=== PATIENT | female | born 1955 | race African-American/Black ===

== ENCOUNTER → 2017-01-06 | Day surgery (SDC) | payer OTHER ==
--- NOTE | 2017-01-07 16:30 | PATH ---
Surgical Pathology Report Patient Name: KARLIE VIDAL [facility]. Rec. #: [id number] /Age/Gender: 1955 (Age: 61) / F Account: [id number] Location: RADIOLOGY [facility] Taken: 01/06/2017 Received: 01/06/2017 Reported: 01/07/2017 Physicians: Grant Solano M.D. Specimen(s) Received RIGHT BREAST MASS SUSPICIOUS 8:30 - 9:00 Clinical History Nonpalpable lesion, right breast mass Ultrasound findings: Highly suspicious/malignant Final Diagnosis BREAST, RIGHT, MASS, 8:30- 9:00, ULTRASOUND GUIDED CORE BIOPSY: INVASIVE DUCTAL CARCINOMA, MODERATELY DIFFERENTIATED, MEASURING 1.2 CM IN THIS MATERIAL. COMMENT: Immunohistochemical stain performed and interpreted at [facility] show the carcinoma is positive for E-cadherin, supporting ductal differentiation. Findings discussed with Dr. Chang. Breast prognostic markers are pending and will be reported as an addendum. Electronically Signed Karo Ferro M.D. Addendum Reported: 01/09/2017 Addendum Diagnosis Results of Estrogen Receptor (ER) and Progesterone Receptor (WV) studies performed on block "1 " at [facility] are as follows: ER (clone [id number] mouse monoclonal antibody by [employer]): 90% nuclear staining with moderate to strong intensity (Positive). WV (clone16 mouse monoclonal antibody by [employer]): up to ~5% nuclear staining with moderate intensity (Positive). Results of Her2 (IHC) & Ki-67 studies performed on block "1 " at [place], [place] ([id number]) are as follows: Her2 IHC (EP3 from [employer], formerly known as [id number], using Amador Polymer Refine detection kit): 3+ (Positive) Ki-67: 40% (high proliferative index). Positive and negative controls (internal if applicable) show appropriate results. Formalin fixation and cold ischemic times are within current ASCO/CAP recommendations for ER, WV and Her2 testing. Karo Ferro M.D. Gross Description Received in formalin, labeled "right 8:30-9:00," are 4 sal-yellow, cylindrical portions of fibroadipose tissue ranging from 1.0-1.4 cm. in length and averaging 0.1 cm. in diameter. The specimen is submitted in toto in one cassette. Time to formalin fixation: Less than one minute Total formalin fixation time: Approximately 7 hours. 01/06/201701/06/2017
== END | disposition home or self-care (01) ==
LOC: JRADUS-SUR 10:14
PROVIDERS: ATTEND Internal Medicine
PROC: 0HBT3ZX Excision of Right Breast, Percutaneous Approach, Diagnostic (ICD-10-PCS; principal; 2017-01-06)
DX: C50.511 Malignant neoplasm of lower-outer quadrant of right female breast (principal); N63.13 Unspecified lump in the right breast, lower outer quadrant
CPT/HCPCS: 19083; 88305-TC; 88341-TC; 88342-TC; G0206-TC

== ENCOUNTER → 2017-01-20 | Day surgery (SDC) | payer OTHER ==
--- NOTE | 2017-01-21 15:50 | PATH ---
Surgical Pathology Report Patient Name: KARLIE VIDAL [facility]. Rec. #: [id number] /Age/Gender: 1955 (Age: 61) / F Account: [id number] Location: RADIOLOGY [facility] Taken: 01/20/2017 Received: 01/20/2017 Reported: 01/21/2017 Physicians: Grant Solano M.D. Specimen(s) Received A: RIGHT LYMPH NODE BREAST CORE BIOPSY B: RIGHT LYMPH NODE BREAST CORE BIOPSY Clinical History Preoperative diagnosis: Nonpalpable lesion, patient has biopsy proven right breast malignancy Mammographic findings: Suspicious Ultrasound findings: Suspicious Final Diagnosis A. RIGHT AXILLARY LYMPH NODE #1, NEEDLE CORE BIOPSY: METASTATIC ADENOCARCINOMA MORPHOLOGICALLY CONSISTENT WITH THE PATIENT'S PREVIOUSLY DIAGNOSED BREAST CARCINOMA, 0.8 CM IN LENGTH MEASURED ON SLIDE. B. RIGHT AXILLARY LYMPH NODE #2, NEEDLE CORE BIOPSY: METASTATIC ADENOCARCINOMA MORPHOLOGICALLY CONSISTENT WITH THE PATIENT'S PREVIOUSLY DIAGNOSED BREAST CARCINOMA, 0.3 CM IN LENGTH MEASURED ON SLIDE. Results of Estrogen Receptor (ER) and Progesterone Receptor (HI) studies performed on block "A" at [facility] are as follows: ER (clone [id number] mouse monoclonal antibody by [employer]): ~80% nuclear staining with moderate intensity (Positive). HI (clone16 mouse monoclonal antibody by [employer]): ~5% nuclear staining with moderate intensity (Positive). Positive and negative controls (internal if applicable) show appropriate results. Formalin fixation and cold ischemic times are within current ASCO/CAP recommendations for ER, HI and Her2 testing. Comment: Also see prior specimen [id number]. Assays for HER-2/maris and Ki67 are pending, and a report will follow. Electronically Signed Bernardo Carter M.D. Addendum Reported: 01/23/2017 Addendum Diagnosis Results of Her2 (IHC) & Ki-67 studies performed on block "A" at [place], [place] ([id number]) are as follows: Her2 IHC (EP3 from [employer], formerly known as [id number], using [employer] Polymer Refine detection kit): 3+ Positive Ki-67: ~25% (Intermediate proliferative index) Positive and negative controls (internal if applicable) show appropriate results. Bernardo Carter M.D. Gross Description A. Received in formalin labeled "right axilla lymph node #1," are 3 sal-yellow, cylindrical portions of fibroadipose tissue ranging from 0.4-1.2 cm in length and averaging 0.1 cm in diameter. The specimens are submitted in toto in one cassette. B. Received in formalin labeled "right axilla lymph node #2," is a 1.2 cm in length and 0.1 cm in diameter sal-yellow, cylindrical portion of fibroadipose tissue. The specimen is submitted in toto in one cassette. Time to formalin fixation: Less than one minute Total formalin fixation time: Approximately 8 hours. 01/20/201701/20/2017
== END | disposition home or self-care (01) ==
LOC: JRADUS-SUR 08:13
PROVIDERS: ATTEND Surgery Surgical Oncology
PROC: 07D53ZX Extraction of Right Axillary Lymphatic, Percutaneous Approach, Diagnostic (ICD-10-PCS; principal; 2017-01-20)
DX: C50.911 Malignant neoplasm of unspecified site of right female breast (principal); C77.3 Secondary and unspecified malignant neoplasm of axilla and upper limb lymph nodes; Z17.0 Estrogen receptor positive status [ER+]
CPT/HCPCS: 19083; 38505; 76942; 87899; 88305-TC; 88342-TC

== ENCOUNTER 2017-02-25 07:12 | Day surgery (SDC) | payer OTHER ==
[2017-02-18 10:14] VITALS: BMI 52.5
--- NOTE | 2017-02-19 10:34 | HP ---
Admitting History and Physical - Primary Care Physician PCP: Mendoza Oquendo - Admission Chief Complaint: right breast cancer History of Present Illness: 61 yo female noted to have a right upper outer quad mass on mammo and US (1.2 cm at 8:30-9:00), underwent an US core bx which was c/w infiltrating ductal carcinoma, ER pos, TN pos, Her 2 pos. On exam, patient was also noted to have a suspicious right axillary LN. Core bx was done 01/20 which was c/w metastatic adeno carcinoma. Patient is now scheduled to have an infusaport placement for neoadjuvant chemo. History Source: Patient Limitations to Obtaining History: No Limitations - Past Medical History Cardiovascular: Yes: HTN Pulmonary: Yes: Asthma Gastrointestinal: Yes: GERD ...: No - Smoking History Smoking history: Never smoked Have you smoked in the past 12 months: No - Alcohol/Substance Use Hx Alcohol Use: Yes (OCCASIONALLY) Home Medications - Allergies Allergies/Adverse Reactions: Allergies Allergy/AdvReac Type Severity Reaction Status Date / Time No Known Allergies Allergy Verified 02/18/17 10:14 - Home Medications Home Medications: Ambulatory Orders Albuterol Sulfate Inhaler - [Ventolin HFA Inhaler -] 1 puff IH PRN PRN 02/18/17 Amlodipine Besylate 5 mg PO DAILY 02/18/17 Atenolol/Chlorthalidone [Atenolol-Chlorthalidone 100-25] 1 tab PO DAILY Omeprazole 20 mg PO BID 02/18/17 Salmeterol/Fluticasone [Advair 500Mcg/50Mcg -] 1 inh IN BID 02/18/17 Family Disease History - Family Disease History Family History: Unremarkable Review of Systems - Review of Systems Constitutional: reports: No Symptoms Cardiovascular: reports: No Symptoms Respiratory: reports: No Symptoms Physical Examination Constitutional: Yes: Well Nourished, Calm Cardiovascular: Yes: WNL Respiratory: Yes: WNL Breast(s): Yes: Other (No suspicious masses, nipple d/c or retraction noted. Palpable right axillary firm node noted.) Problem List - Problems (1) Breast cancer, right Code(s): C50.911 - MALIGNANT NEOPLASM OF UNSP SITE OF RIGHT FEMALE BREAST Qualifiers: Breast location: overlapping sites of breast Estrogen receptor status: positive Patient sex: female Qualified Code(s): C50.811 - Malignant neoplasm of overlapping sites of right female breast; Z17.0 - Estrogen receptor positive status [ER+]; Z17.0 - Estrogen receptor positive status [ER+] Assessment/Plan Right breast cancer with mets to axillary nodes.
[2017-02-25] MEDS ORDERED: DESFLURANE GAS 240 ML BOTTLE IH ONE (07:26)
[2017-02-25] MEDS ORDERED: DEXAMETHASONE SOD PHOSPHATE 4 MG/1 ML VIAL ONE (07:37)
[2017-02-25] MEDS ORDERED: ceFAZolin SODIUM 1 GM VIAL ONE ×2 (07:37→08:26)
[2017-02-25] MEDS ORDERED: KETOROLAC TROMETHAMINE 30 MG/1 ML VIAL ONE (07:37)
[2017-02-25] MEDS ORDERED: ONDANSETRON 4 MG/2 ML VIAL ONE (07:37)
[2017-02-25] MEDS ORDERED: MIDAZOLAM HCL 2 MG/2 ML SINGLE DOSE VIAL ONE (07:38)
[2017-02-25] MEDS ORDERED: SUCCINYLCHOLINE CHLORIDE 200 MG/10 ML VIAL ONE (07:38)
[2017-02-25] MEDS ORDERED: PROPOFOL 20 ML ONE ×2 (07:38)
[2017-02-25] MEDS ORDERED: HEPARIN NA (PORCINE) 5,000 UNITS/ML 1ML VIAL SQ ONE (09:10)
[2017-02-25] MEDS ORDERED: KETOROLAC TROMETHAMINE 30 MG/1 ML VIAL IVPUSH PRN (09:10)
[2017-02-25] MEDS ORDERED: ONDANSETRON 4 MG/2 ML VIAL IVPUSH PRN (09:10)
[2017-02-25] MEDS ORDERED: LIDOCAINE HCL 1%, 10 MG/ML (20ML VIAL) INF ONE ×2 (09:11)
[2017-02-25] MEDS ORDERED: DEXTROSE 5%-0.45% SALINE 1,000 ML IV SCH (09:15)
[2017-02-25 10:24] VITALS: TEMP 98.6
--- NOTE | 2017-02-25 12:12 | OP ---
DATE OF OPERATION: 02/25/2017 PREOPERATIVE DIAGNOSIS: Right breast cancer. POSTOPERATIVE DIAGNOSIS: Right breast cancer. PROCEDURE: Left subclavian single-lumen LifePort placement. ANESTHESIA: IV sedation with local. ATTENDING SURGEON: Mendoza Oquendo MD ESTIMATED BLOOD LOSS: Minimal. COMPLICATIONS: None. DESCRIPTION OF PROCEDURE: Patient was made aware of the risks and benefits of the procedure and consented. She was placed in the supine position, and after IV sedation was administered, the operative site was prepped and draped in the usual sterile fashion. She was then placed in the Trendelenburg position. Lidocaine 1% was used for local anesthesia. Using the Seldinger technique, the left subclavian vein was easily identified, and a wire was placed into good position by identification by intraoperative fluoroscopy. Incisions were made over the puncture site, and approximately inferomedial to the puncture site. Using electrocautery, the larger inferior incision was deepened, and an inferior pocket was made. The catheter was tunneled from the large incision to the smaller incision and fashioned to the proper length. The proximal inferior portion was then attached to the port head, which was then placed into the inferior pocket. Under direct fluoroscopic control, a dilator and introducer were placed over the wire in good position, and the wire and dilator were removed. The catheter was placed through the introducer into good position, and then, the introducer was stripped away. There was easy withdrawal of blood and infusion of dilute and then concentrated heparinized saline. The catheter length was 22 cm. The port head was then sutured to the skin with 2-0 Prolene. The wound was copiously irrigated with normal saline. Hemostasis was maintained by electrocautery. The wound was then closed with deep 3-0 Vicryl followed y a running subcuticular 4-0 Monocryl. Dermabond was then applied, and the post-procedure chest x-ray revealed no pneumothorax and good position of the catheter. Patient discharged to home. MENDOZA OQUENDO M.D. [id number]
[2017-02-25 12:49] VITALS: BP 132/84; PULSE 59
== END 2017-02-25 12:10 | disposition home or self-care (01) ==
LOC: FASU 07:12
PROVIDERS: ATTEND Surgery Surgical Oncology
PROC: B517ZZA Fluoroscopy of Left Subclavian Vein, Guidance (ICD-10-PCS; 2017-02-25)
PROC: 05H633Z Insertion of Infusion Device into Left Subclavian Vein, Percutaneous Approach (ICD-10-PCS; principal; 2017-02-25 08:58)
DX: C50.811 Malignant neoplasm of overlapping sites of right female breast (principal); Z17.0 Estrogen receptor positive status [ER+]; I10 Essential (primary) hypertension; J45.909 Unspecified asthma, uncomplicated; K21.9 Gastro-esophageal reflux disease without esophagitis
CPT/HCPCS: 71045-TC; J1644

== ENCOUNTER 2017-02-27 07:34 | Day surgery (SDC) | payer OTHER ==
[~2017-02-27 07:34] MED LIST: ACETAMINOPHEN 325 MG TABLET (FP) PO ONE; DEXAMETHASONE IVPB ONE; DIPHENHYDRAMINE IVPB ONE; PACLITAXEL IVPB ONE; PERTUZUMAB 840 MG in SODIUM CHLORIDE 250 ML IVPB ONE; RANITIDINE IVPB ONE; SODIUM CHLORIDE IVPB ONE; TRASTUZUMAB IVPB ONE; [UNRECOGNIZED DRUG - OTHER] IVPB ONE
[2017-02-27] MEDS ORDERED: DIPHENHYDRAMINE IVPB ONE ×2 (10:00→11:15)
[2017-02-27] MEDS ORDERED: DEXAMETHASONE IVPB ONE ×2 (10:00→11:15)
[2017-02-27] MEDS ORDERED: ACETAMINOPHEN 325 MG TABLET (FP) PO ONE (10:00)
[2017-02-27] MEDS ORDERED: RANITIDINE IVPB ONE ×2 (10:00→11:15)
[2017-02-27] MEDS ORDERED: [UNRECOGNIZED DRUG - OTHER] IVPB ONE (10:00)
[2017-02-27 10:34] LABS: BASO % 0.2 % (0-2.0); EOS % 0.3 % (0-4.5); HEMATOCRIT 40.7 % (32.4-45.2); HEMOGLOBIN 13.1 GM/dL (10.7-15.3); MCHC 32.1 g/dl (32.0-36.0); MEAN CELL VOLUME 90.3 fl (80-96); MEAN PLT VOLUME 9.7 fl (7.5-11.1); MONO % 5.7 % (3.8-10.2); NEUT % 77.8 % (42.8-82.8); PLATELET COUNT 202 K/MM3 (134-434); RBC 4.51 M/mm3 (3.60-5.2); RDW 14.8 % (11.6-15.6); WHITE BLOOD COUNT 9.9 K/mm3 (4.0-10.0)
[2017-02-27 10:57] LABS: ALBUMIN 3.9 g/dl (3.4-5.0); ALK PHOS 74 U/L (45-117); ANION GAP 11 (8-16); BILIRUBIN,DIRECT < 0.2 mg/dL (0.0-0.2); BILIRUBIN,TOTAL 0.4 mg/dL (0.2-1.0); BLOOD UREA NITROGEN 19 mg/dL (7-18); CALCIUM 9.2 mg/dL (8.5-10.1); CHLORIDE 104 mmol/L (98-107); CO2 27 mmol/L (21-32); CREATININE 1.1 mg/dL (0.55-1.02); GLUCOSE,RANDOM 152 mg/dL (74-106); POTASSIUM 3.5 mmol/L (3.5-5.1); SGOT/AST 14 U/L (15-37); SGPT/ALT 20 U/L (12-78); SODIUM 142 mmol/L (136-145); TOT PROT 7.4 g/dl (6.4-8.2)
[2017-02-27] MEDS ORDERED: SODIUM CHLORIDE IVPB ONE ×3 (11:00→13:00)
[2017-02-27] MEDS ORDERED: PACLITAXEL IVPB ONE (11:00)
[2017-02-27] MEDS ORDERED: DEXAMETHASONE SOD PHOSPHATE 10 MG/1 ML VIAL IVPB ONE (11:15)
[2017-02-27] MEDS ORDERED: [UNRECOGNIZED DRUG - OTHER] IVPB ONE (11:15)
[2017-02-27] MEDS ORDERED: PERTUZUMAB 840 MG in SODIUM CHLORIDE 250 ML IVPB ONE ×2 (12:00→13:30)
[2017-02-27] MEDS ORDERED: TRASTUZUMAB IVPB ONE ×2 (12:00→13:00)
[2017-02-27] MEDS ORDERED: PORTA CATH FLUSH 10 ML IVPUSH ONE (15:34)
[2017-02-27 15:35] VITALS: TEMP 97.7
[2017-02-27 16:19] VITALS: BP 148/90; PULSE 63
== END 2017-02-27 16:20 | disposition home or self-care (01) ==
LOC: JONCCHEMO 07:34 → J7W 11:20 → JONCCHEMO 16:20
PROVIDERS: ATTEND Internal Medicine Hematology & Oncology
DX: Z51.11 Encounter for antineoplastic chemotherapy (principal); C50.919 Malignant neoplasm of unspecified site of unspecified female breast; E66.01 Morbid (severe) obesity due to excess calories; G47.30 Sleep apnea, unspecified; I10 Essential (primary) hypertension; J45.909 Unspecified asthma, uncomplicated
CPT/HCPCS: 36415; 80053; 80076; 83735; 85025; 96367; 96375; 96413; 96415; 96417; J9306; J9355

== ENCOUNTER 2017-03-06 07:42 | Day surgery (SDC) | payer OTHER ==
[2017-03-06] MEDS ORDERED: DEXAMETHASONE IVPB ONE (10:00)
[2017-03-06] MEDS ORDERED: [UNRECOGNIZED DRUG - OTHER] IVPB ONE (10:00)
[2017-03-06] MEDS ORDERED: DIPHENHYDRAMINE IVPB ONE (10:00)
[2017-03-06] MEDS ORDERED: RANITIDINE IVPB ONE (10:00)
[2017-03-06] MEDS ORDERED: SODIUM CHLORIDE IVPB ONE (10:30)
[2017-03-06] MEDS ORDERED: PACLITAXEL IVPB ONE (10:30)
[2017-03-06] MEDS ORDERED: SODIUM CHLORIDE 1,000 ML IV SCH (12:30)
[2017-03-06 13:08] LABS: BASO % 0.1 % (0-2.0); EOS % 0.1 % (0-4.5); HEMATOCRIT 39.2 % (32.4-45.2); HEMOGLOBIN 12.5 GM/dL (10.7-15.3); LYMPH % 7.8 % (8-40); MCH 28.8 pg (25.7-33.7); MEAN PLT VOLUME 9.9 fl (7.5-11.1); MONO % 1.1 % (3.8-10.2); NEUT % 90.9 % (42.8-82.8); PLATELET COUNT 203 K/MM3 (134-434); RBC 4.35 M/mm3 (3.60-5.2); RDW 14.7 % (11.6-15.6)
[2017-03-06 13:33] LABS: ALBUMIN 3.1 g/dl (3.4-5.0); CALCIUM 7.6 mg/dL (8.5-10.1); CHLORIDE 106 mmol/L (98-107); SODIUM 142 mmol/L (136-145)
[2017-03-06 13:38] LABS: ALK PHOS 65 U/L (45-117); ANION GAP 12 (8-16); BILIRUBIN,TOTAL 0.5 mg/dL (0.2-1.0); BLOOD UREA NITROGEN 16 mg/dL (7-18); CO2 24 mmol/L (21-32); GLUCOSE,RANDOM 208 mg/dL (74-106); SGOT/AST 18 U/L (15-37); SGPT/ALT 26 U/L (12-78); TOT PROT 6.1 g/dl (6.4-8.2)
[2017-03-06 13:54] LABS: POTASSIUM 2.8 mmol/L (3.5-5.1)
[2017-03-06] MEDS ORDERED: POTASSIUM CHLORIDE TABS 20 MEQ TABLET.ER (FP) PO ONE (14:30)
[2017-03-06] MEDS ORDERED: SODIUM CHLORIDE 100 ML with POTASSIUM CHLORIDE 10 MEQ IVPB SCH (15:30)
[2017-03-06] MEDS ORDERED: KCL 10 MEQ IVPB 10 MEQ/100 ML INFUS.BAG IVPB SCH (15:30)
[2017-03-06 16:15] VITALS: TEMP 97.7
[2017-03-06] MEDS ORDERED: PORTA CATH FLUSH 10 ML IVPUSH ONE (16:22)
[2017-03-06] MEDS: SODIUM CHLORIDE 100 ML with POTASSIUM CHLORIDE 10 MEQ IVPB SCH ×2 (16:27→17:33)
[2017-03-06 18:31] VITALS: BP 132/73; PULSE 74
== END 2017-03-06 18:55 | disposition home or self-care (01) ==
LOC: JONCCHEMO 07:42 → J7W 12:04 → JONCCHEMO 18:55
PROVIDERS: ATTEND Internal Medicine Hematology & Oncology
DX: Z51.11 Encounter for antineoplastic chemotherapy (principal); C50.919 Malignant neoplasm of unspecified site of unspecified female breast
CPT/HCPCS: 36415; 80053; 82962; 85025; 96366; 96367; 96375; 96413; 96415; 96417; J1100

== ENCOUNTER 2017-03-13 07:28 | Day surgery (SDC) | payer OTHER ==
[2017-03-13] MEDS ORDERED: DEXAMETHASONE INJECTION 10 MG, RANITIDINE INJECTION 50 MG, DIPHENHYDRAMINE 50 MG in SOD... IVPB ONE (10:00)
[2017-03-13] MEDS ORDERED: PACLITAXEL IVPB ONE (10:30)
[2017-03-13] MEDS ORDERED: SODIUM CHLORIDE IVPB ONE (10:30)
[2017-03-13 11:16] LABS: BASO % 0.5 % (0-2.0); EOS % 0.1 % (0-4.5); HEMATOCRIT 39.1 % (32.4-45.2); HEMOGLOBIN 12.9 GM/dL (10.7-15.3); LYMPH % 12.3 % (8-40); MCH 29.6 pg (25.7-33.7); MEAN CELL VOLUME 89.8 fl (80-96); MEAN PLT VOLUME 8.8 fl (7.5-11.1); MONO % 1.9 % (3.8-10.2); NEUT % 85.2 % (42.8-82.8); PLATELET COUNT 231 K/MM3 (134-434); RBC 4.36 M/mm3 (3.60-5.2); RDW 14.1 % (11.6-15.6)
[2017-03-13 11:45] LABS: ALBUMIN 3.8 g/dl (3.4-5.0); ALK PHOS 79 U/L (45-117); ANION GAP 9 (8-16); BILIRUBIN,TOTAL 0.4 mg/dL (0.2-1.0); BLOOD UREA NITROGEN 15 mg/dL (7-18); CALCIUM 8.7 mg/dL (8.5-10.1); CHLORIDE 103 mmol/L (98-107); CO2 26 mmol/L (21-32); CREATININE 1.2 mg/dL (0.55-1.02); GLUCOSE,RANDOM 149 mg/dL (74-106); MAGNESIUM 1.8 mg/dL (1.8-2.4); POTASSIUM 3.7 mmol/L (3.5-5.1); SGOT/AST 12 U/L (15-37); SGPT/ALT 29 U/L (12-78); SODIUM 138 mmol/L (136-145); TOT PROT 7.3 g/dl (6.4-8.2)
[2017-03-13] MEDS ORDERED: DEXAMETHASONE SOD PHOSPHATE 10 MG/1 ML VIAL IVPB ONE (14:00)
[2017-03-13] MEDS ORDERED: DEXAMETHASONE INJECTION 10 MG, ONDANSETRON INJECTION 12 MG in SODIUM CHLORIDE 100 ML IVPUSH ONE (14:00)
[2017-03-13] MEDS ORDERED: SODIUM CHLORIDE 1,000 ML IV SCH (15:45)
[2017-03-13 16:54] VITALS: PULSE 67
[2017-03-13] MEDS ORDERED: PORTA CATH FLUSH 10 ML IVPUSH ONE (17:20)
[2017-03-13 18:38] VITALS: BP 125/65; TEMP 98.4
== END 2017-03-13 19:31 | disposition home or self-care (01) ==
LOC: JONCCHEMO 07:28 → J7W 13:07 → JONCCHEMO 19:31
PROVIDERS: ATTEND Internal Medicine Hematology & Oncology
DX: Z51.11 Encounter for antineoplastic chemotherapy (principal); C50.919 Malignant neoplasm of unspecified site of unspecified female breast
CPT/HCPCS: 36415; 80053; 82962; 83735; 85025; 96361; 96367; 96375; 96413

== ENCOUNTER 2017-03-20 07:33 | Day surgery (SDC) | payer OTHER ==
[2017-03-20] MEDS ORDERED: DEXAMETHASONE INJECTION 10 MG, RANITIDINE INJECTION 50 MG, DIPHENHYDRAMINE 50 MG in SOD... IVPB ONE (08:00)
[2017-03-20] MEDS ORDERED: ACETAMINOPHEN 325 MG TABLET (FP) PO ONE (08:00)
[2017-03-20] MEDS ORDERED: PACLITAXEL IVPB ONE (08:30)
[2017-03-20] MEDS ORDERED: SODIUM CHLORIDE IVPB ONE ×2 (08:30→10:30)
[2017-03-20] MEDS ORDERED: PERTUZUMAB 420 MG in SODIUM CHLORIDE 250 ML IVPB ONE (09:30)
[2017-03-20] MEDS ORDERED: TRASTUZUMAB IVPB ONE (10:30)
[2017-03-20 11:26] LABS: BASO % 0.5 % (0-2.0); EOS % 0.1 % (0-4.5); HEMATOCRIT 36.5 % (32.4-45.2); HEMOGLOBIN 12.1 GM/dL (10.7-15.3); LYMPH % 13.7 % (8-40); MCH 29.8 pg (25.7-33.7); MCHC 33.3 g/dl (32.0-36.0); MEAN CELL VOLUME 89.5 fl (80-96); MEAN PLT VOLUME 8.9 fl (7.5-11.1); MONO % 2.7 % (3.8-10.2); PLATELET COUNT 279 K/MM3 (134-434); RBC 4.08 M/mm3 (3.60-5.2); RDW 14.3 % (11.6-15.6); WHITE BLOOD COUNT 4.5 K/mm3 (4.0-10.0)
[2017-03-20 11:51] LABS: ALBUMIN 3.5 g/dl (3.4-5.0); ALK PHOS 74 U/L (45-117); ANION GAP 10 (8-16); BILIRUBIN,DIRECT < 0.2 mg/dL (0.0-0.2); BILIRUBIN,TOTAL 0.3 mg/dL (0.2-1.0); BLOOD UREA NITROGEN 14 mg/dL (7-18); CALCIUM 8.5 mg/dL (8.5-10.1); CHLORIDE 104 mmol/L (98-107); CO2 25 mmol/L (21-32); CREATININE 1.2 mg/dL (0.55-1.02); GLUCOSE,RANDOM 168 mg/dL (74-106); MAGNESIUM 1.7 mg/dL (1.8-2.4); POTASSIUM 3.5 mmol/L (3.5-5.1); SGOT/AST 13 U/L (15-37); SGPT/ALT 27 U/L (12-78); SODIUM 139 mmol/L (136-145); TOT PROT 6.8 g/dl (6.4-8.2)
[2017-03-20] MEDS ORDERED: DEXAMETHASONE SOD PHOSPHATE 10 MG/1 ML VIAL IVPUSH ONE (12:30)
[2017-03-20 12:35] VITALS: TEMP 97.7
[2017-03-20] MEDS ORDERED: PORTA CATH FLUSH 10 ML IVPUSH ONE ×2 (14:34→14:48)
[2017-03-20 16:05] VITALS: BP 130/80; PULSE 72
== END 2017-03-20 15:20 | disposition home or self-care (01) ==
LOC: JONCCHEMO 07:33 → J7W 12:25 → JONCCHEMO 15:20
PROVIDERS: ATTEND Internal Medicine Hematology & Oncology
DX: Z51.11 Encounter for antineoplastic chemotherapy (principal); C50.919 Malignant neoplasm of unspecified site of unspecified female breast
CPT/HCPCS: 36415; 80053; 80076; 83735; 85025; 96367; 96375; 96413; 96417; J1100; J9306; J9355

== ENCOUNTER 2017-03-27 07:35 | Day surgery (SDC) | payer OTHER ==
[2017-03-27] MEDS ORDERED: DEXAMETHASONE INJECTION 10 MG, DIPHENHYDRAMINE 50 MG, RANITIDINE INJECTION 50 MG in SOD... IVPB ONE (08:00)
[2017-03-27] MEDS ORDERED: SODIUM CHLORIDE IVPB ONE (08:30)
[2017-03-27] MEDS ORDERED: PACLITAXEL IVPB ONE (08:30)
[2017-03-27 11:46] LABS: BASO % 0.4 % (0-2.0); EOS % 0.2 % (0-4.5); HEMATOCRIT 37.4 % (32.4-45.2); HEMOGLOBIN 12.2 GM/dL (10.7-15.3); LYMPH % 11.7 % (8-40); MCH 29.3 pg (25.7-33.7); MCHC 32.8 g/dl (32.0-36.0); MEAN CELL VOLUME 89.5 fl (80-96); MEAN PLT VOLUME 8.7 fl (7.5-11.1); MONO % 2.7 % (3.8-10.2); PLATELET COUNT 289 K/MM3 (134-434); RBC 4.17 M/mm3 (3.60-5.2); RDW 14.3 % (11.6-15.6); WHITE BLOOD COUNT 5.6 K/mm3 (4.0-10.0)
[2017-03-27 12:22] LABS: ALBUMIN 3.7 g/dl (3.4-5.0); ANION GAP 9 (8-16); BILIRUBIN,DIRECT < 0.2 mg/dL (0.0-0.2); BLOOD UREA NITROGEN 16 mg/dL (7-18); CALCIUM 8.5 mg/dL (8.5-10.1); CHLORIDE 100 mmol/L (98-107); CO2 26 mmol/L (21-32); CREATININE 1.3 mg/dL (0.55-1.02); GLUCOSE,RANDOM 170 mg/dL (74-106); MAGNESIUM 1.6 mg/dL (1.8-2.4); POTASSIUM 3.6 mmol/L (3.5-5.1); SGOT/AST 11 U/L (15-37); SGPT/ALT 27 U/L (12-78); SODIUM 135 mmol/L (136-145)
[2017-03-27 12:23] LABS: ALK PHOS 84 U/L (45-117); BILIRUBIN,TOTAL 0.4 mg/dL (0.2-1.0)
[2017-03-27] MEDS ORDERED: DEXAMETHASONE SOD PHOSPHATE 10 MG/1 ML VIAL ONE (14:02)
[2017-03-27] MEDS ORDERED: ALTEPLASE 2 MG VIAL CVP ONE (14:15)
[2017-03-27] MEDS ORDERED: DEXAMETHASONE SOD PHOSPHATE 10 MG/1 ML VIAL IVPUSH ONE (15:00)
[2017-03-27] MEDS ORDERED: SODIUM CHLORIDE 1,000 ML IV SCH (15:15)
[2017-03-27] MEDS ORDERED: MAGNESIUM 1GM/D5W - 1 GM/100 ML IVPB IVPB ONE (15:15)
[2017-03-27 18:18] VITALS: TEMP 98.2
[2017-03-27] MEDS ORDERED: PORTA CATH FLUSH 10 ML IVPUSH ONE (18:18)
[2017-03-27 19:06] VITALS: BP 122/73; PULSE 63
== END 2017-03-27 19:10 | disposition home or self-care (01) ==
LOC: JONCCHEMO 07:35 → J7W 13:18 → JONCCHEMO 19:10
PROVIDERS: ATTEND Internal Medicine Hematology & Oncology
DX: Z51.11 Encounter for antineoplastic chemotherapy (principal); C50.919 Malignant neoplasm of unspecified site of unspecified female breast
CPT/HCPCS: 36415; 80053; 80076; 83036; 83735; 84439; 84443; 85025; 96361; 96366; 96367; 96375; 96413; 96415; 96417; J1100; J2997

== ENCOUNTER 2017-04-03 07:25 | Day surgery (SDC) | payer OTHER ==
[2017-04-03] MEDS ORDERED: DEXAMETHASONE INJECTION 20 MG, DIPHENHYDRAMINE 50 MG, RANITIDINE INJECTION 50 MG in SOD... IVPB ONE (08:00)
[2017-04-03] MEDS ORDERED: DEXAMETHASONE INJECTION 10 MG, DIPHENHYDRAMINE 50 MG, RANITIDINE INJECTION 50 MG in SOD... IVPB ONE (08:00)
[2017-04-03] MEDS ORDERED: SODIUM CHLORIDE IVPB ONE (08:30)
[2017-04-03] MEDS ORDERED: PACLITAXEL IVPB ONE (08:30)
[2017-04-03 11:46] LABS: BASO % 0.8 % (0-2.0); EOS % 1.2 % (0-4.5); HEMATOCRIT 36.1 % (32.4-45.2); HEMOGLOBIN 11.8 GM/dL (10.7-15.3); LYMPH % 31.4 % (8-40); MCH 29.5 pg (25.7-33.7); MCHC 32.8 g/dl (32.0-36.0); MEAN CELL VOLUME 89.8 fl (80-96); MEAN PLT VOLUME 8.9 fl (7.5-11.1); MONO % 7.9 % (3.8-10.2); NEUT % 58.7 % (42.8-82.8); PLATELET COUNT 270 K/MM3 (134-434); RBC 4.02 M/mm3 (3.60-5.2); RDW 14.4 % (11.6-15.6); WHITE BLOOD COUNT 4.6 K/mm3 (4.0-10.0)
[2017-04-03 12:12] LABS: ALBUMIN 3.9 g/dl (3.4-5.0); ANION GAP 9 (8-16); BILIRUBIN,DIRECT < 0.2 mg/dL (0.0-0.2); BILIRUBIN,TOTAL 0.5 mg/dL (0.2-1.0); BLOOD UREA NITROGEN 17 mg/dL (7-18); CHLORIDE 102 mmol/L (98-107); CO2 28 mmol/L (21-32); CREATININE 1.2 mg/dL (0.55-1.02); GLUCOSE,RANDOM 107 mg/dL (74-106); MAGNESIUM 1.8 mg/dL (1.8-2.4); POTASSIUM 3.4 mmol/L (3.5-5.1); SGOT/AST 12 U/L (15-37); SGPT/ALT 28 U/L (12-78); SODIUM 139 mmol/L (136-145)
[2017-04-03 12:14] LABS: ALK PHOS 80 U/L (45-117); TOT PROT 6.8 g/dl (6.4-8.2)
[2017-04-03 14:41] VITALS: TEMP 98
[2017-04-03] MEDS ORDERED: PORTA CATH FLUSH 10 ML IVPUSH ONE (16:15)
[2017-04-03 18:17] VITALS: BP 145/74; PULSE 69
== END 2017-04-03 16:15 | disposition home or self-care (01) ==
LOC: JONCCHEMO 07:25 → J7W 12:53 → JONCCHEMO 16:15
PROVIDERS: ATTEND Internal Medicine Hematology & Oncology
DX: Z51.11 Encounter for antineoplastic chemotherapy (principal); C50.919 Malignant neoplasm of unspecified site of unspecified female breast
CPT/HCPCS: 36415; 80053; 80076; 83735; 85025; 87177; 87209; 96367; 96413; J1100

== ENCOUNTER 2017-04-10 07:37 | Day surgery (SDC) | payer OTHER ==
[2017-04-10] MEDS ORDERED: DEXAMETHASONE INJECTION 20 MG, DIPHENHYDRAMINE 50 MG, RANITIDINE INJECTION 50 MG in SOD... IVPB ONE (08:00)
[2017-04-10] MEDS ORDERED: ACETAMINOPHEN 325 MG TABLET (FP) PO ONE (08:00)
[2017-04-10] MEDS ORDERED: PACLITAXEL IVPB ONE (08:30)
[2017-04-10] MEDS ORDERED: SODIUM CHLORIDE IVPB ONE ×3 (08:30→14:30)
[2017-04-10] MEDS ORDERED: PERTUZUMAB 420 MG in SODIUM CHLORIDE 250 ML IVPB ONE (09:30)
[2017-04-10] MEDS ORDERED: TRASTUZUMAB IVPB ONE ×2 (10:00→14:30)
[2017-04-10 11:24] VITALS: TEMP 97.7
[2017-04-10 11:40] LABS: BASO % 0.4 % (0-2.0); EOS % 0.4 % (0-4.5); HEMATOCRIT 34.2 % (32.4-45.2); HEMOGLOBIN 11.1 GM/dL (10.7-15.3); MCHC 32.3 g/dl (32.0-36.0); MEAN CELL VOLUME 89.7 fl (80-96); MONO % 8.8 % (3.8-10.2); NEUT % 75.4 % (42.8-82.8); PLATELET COUNT 236 K/MM3 (134-434); RBC 3.82 M/mm3 (3.60-5.2); RDW 15.1 % (11.6-15.6); WHITE BLOOD COUNT 11.1 K/mm3 (4.0-10.0)
[2017-04-10 12:07] LABS: ALBUMIN 3.6 g/dl (3.4-5.0); ALK PHOS 91 U/L (45-117); ANION GAP 8 (8-16); BILIRUBIN,DIRECT < 0.2 mg/dL (0.0-0.2); BILIRUBIN,TOTAL 0.4 mg/dL (0.2-1.0); BLOOD UREA NITROGEN 11 mg/dL (7-18); CALCIUM 8.4 mg/dL (8.5-10.1); CHLORIDE 103 mmol/L (98-107); CO2 28 mmol/L (21-32); CREATININE 1.3 mg/dL (0.55-1.02); GLUCOSE,RANDOM 146 mg/dL (74-106); MAGNESIUM 1.7 mg/dL (1.8-2.4); SGOT/AST 17 U/L (15-37); SGPT/ALT 26 U/L (12-78); SODIUM 139 mmol/L (136-145); TOT PROT 6.4 g/dl (6.4-8.2)
[2017-04-10] MEDS ORDERED: MAGNESIUM SULF 50% (8.12 MEQ/2 ML-1 GM VIAL) IVPB ONE ×2 (12:36→14:15)
[2017-04-10] MEDS ORDERED: SODIUM CHLORIDE 1,000 ML IV SCH (12:45)
[2017-04-10] MEDS ORDERED: POTASSIUM CHLORIDE TABS 20 MEQ TABLET.ER (FP) PO ONE (13:15)
[2017-04-10] MEDS ORDERED: MAGNESIUM SULFATE IN WATER 2 GM/50 ML IVPB IVPB ONE (13:15)
[2017-04-10] MEDS ORDERED: DIPHENHYDRAMINE IVPB ONE (13:30)
[2017-04-10] MEDS ORDERED: RANITIDINE IVPB ONE (13:30)
[2017-04-10] MEDS ORDERED: DEXAMETHASONE IVPB ONE (13:30)
[2017-04-10] MEDS ORDERED: [UNRECOGNIZED DRUG - OTHER] IVPB ONE (13:30)
[2017-04-10] MEDS ORDERED: SODIUM CHLORIDE 250 ML IV SCH ×2 (14:00→16:00)
[2017-04-10] MEDS ORDERED: MAGNESIUM SULF 50% (8.12 MEQ/2 ML-1 GM VIAL) ONE (14:02)
[2017-04-10] MEDS ORDERED: ACETAMINOPHEN 325 MG TABLET (FP) ONE (14:48)
[2017-04-10 20:30] VITALS: BP 130/74; PULSE 70
[2017-04-10] MEDS ORDERED: PORTA CATH FLUSH 10 ML IVPUSH ONE (20:30)
== END 2017-04-10 18:00 | disposition home or self-care (01) ==
LOC: JONCCHEMO 07:37 → J7W 13:08 → JONCCHEMO 18:00
PROVIDERS: ATTEND Internal Medicine Hematology & Oncology
DX: Z51.11 Encounter for antineoplastic chemotherapy (principal); C50.919 Malignant neoplasm of unspecified site of unspecified female breast
CPT/HCPCS: 36415; 80053; 80076; 83735; 85025; 96361; 96367; 96375; 96413; 96417; J9306; J9355

== ENCOUNTER 2017-04-24 07:29 | Day surgery (SDC) | payer OTHER ==
[2017-04-24] MEDS ORDERED: DEXAMETHASONE INJECTION 20 MG, RANITIDINE INJECTION 50 MG, DIPHENHYDRAMINE 50 MG in SOD... IVPB ONE (10:00)
[2017-04-24] MEDS ORDERED: PACLITAXEL 138 MG in SODIUM CHLORIDE 250 ML IVPB ONE (10:30)
[2017-04-24 11:49] LABS: BASO % 0.8 % (0-2.0); EOS % 1.2 % (0-4.5); HEMATOCRIT 32.2 % (32.4-45.2); HEMOGLOBIN 10.8 GM/dL (10.7-15.3); LYMPH % 19.1 % (8-40); MCH 30.2 pg (25.7-33.7); MCHC 33.5 g/dl (32.0-36.0); MEAN CELL VOLUME 90.3 fl (80-96); MEAN PLT VOLUME 8.4 fl (7.5-11.1); MONO % 8.5 % (3.8-10.2); NEUT % 70.4 % (42.8-82.8); PLATELET COUNT 266 K/MM3 (134-434); RBC 3.57 M/mm3 (3.60-5.2); RDW 15.5 % (11.6-15.6); WHITE BLOOD COUNT 8.9 K/mm3 (4.0-10.0)
[2017-04-24 12:46] LABS: ALBUMIN 3.5 g/dl (3.4-5.0); ANION GAP 9 (8-16); BLOOD UREA NITROGEN 9 mg/dL (7-18); CALCIUM 8.7 mg/dL (8.5-10.1); CHLORIDE 105 mmol/L (98-107); CO2 27 mmol/L (21-32); GLUCOSE,RANDOM 89 mg/dL (74-106); POTASSIUM 3.4 mmol/L (3.5-5.1); SODIUM 141 mmol/L (136-145)
[2017-04-24 13:03] LABS: ALK PHOS 76 U/L (45-117); BILIRUBIN,DIRECT < 0.2 mg/dL (0.0-0.2); BILIRUBIN,TOTAL 0.5 mg/dL (0.2-1.0); CREATININE 1.2 mg/dL (0.55-1.02); MAGNESIUM 1.8 mg/dL (1.8-2.4); SGOT/AST 12 U/L (15-37); SGPT/ALT 15 U/L (12-78); TOT PROT 6.9 g/dl (6.4-8.2)
[2017-04-24 14:01] VITALS: TEMP 98
[2017-04-24] MEDS ORDERED: PORTA CATH FLUSH 10 ML IVPUSH ONE (14:01)
[2017-04-24 15:35] VITALS: BP 152/84; PULSE 74
== END 2017-04-24 15:36 | disposition home or self-care (01) ==
LOC: JONCCHEMO 07:29
PROVIDERS: ATTEND Internal Medicine Hematology & Oncology
PROC: 3E04305 Introduction of Other Antineoplastic into Central Vein, Percutaneous Approach (ICD-10-PCS; principal; 2017-04-24)
PROC: 3E043GC Introduction of Other Therapeutic Substance into Central Vein, Percutaneous Approach (ICD-10-PCS; 2017-04-24)
DX: Z51.11 Encounter for antineoplastic chemotherapy (principal); C50.911 Malignant neoplasm of unspecified site of right female breast; Z17.0 Estrogen receptor positive status [ER+]
CPT/HCPCS: 36415; 80053; 80076; 83735; 85025; 96367; 96375; 96413; J1100

== ENCOUNTER 2017-05-01 07:03 | Day surgery (SDC) | payer OTHER ==
[2017-05-01] MEDS ORDERED: DEXAMETHASONE INJECTION 20 MG, DIPHENHYDRAMINE 50 MG, RANITIDINE INJECTION 50 MG in SOD... IVPB ONE (10:00)
[2017-05-01] MEDS ORDERED: ACETAMINOPHEN 325 MG TABLET (FP) PO ONE (10:00)
[2017-05-01] MEDS ORDERED: PACLITAXEL 138 MG in SODIUM CHLORIDE 250 ML IVPB ONE (10:30)
[2017-05-01] MEDS ORDERED: PERTUZUMAB 420 MG in SODIUM CHLORIDE 250 ML IVPB ONE (11:30)
[2017-05-01 11:44] LABS: BASO % 0.5 % (0-2.0); EOS % 3.6 % (0-4.5); HEMATOCRIT 32.1 % (32.4-45.2); HEMOGLOBIN 10.9 GM/dL (10.7-15.3); LYMPH % 21.3 % (8-40); MCH 30.9 pg (25.7-33.7); MEAN CELL VOLUME 90.7 fl (80-96); MEAN PLT VOLUME 8.3 fl (7.5-11.1); MONO % 6.1 % (3.8-10.2); NEUT % 68.5 % (42.8-82.8); PLATELET COUNT 311 K/MM3 (134-434); RBC 3.54 M/mm3 (3.60-5.2); RDW 15.7 % (11.6-15.6); WHITE BLOOD COUNT 8.5 K/mm3 (4.0-10.0)
[2017-05-01] MEDS ORDERED: TRASTUZUMAB IVPB ONE (12:00)
[2017-05-01] MEDS ORDERED: SODIUM CHLORIDE IVPB ONE (12:00)
[2017-05-01 12:08] LABS: ALBUMIN 3.3 g/dl (3.4-5.0); ALK PHOS 81 U/L (45-117); ANION GAP 11 (8-16); BILIRUBIN,TOTAL 0.4 mg/dL (0.2-1.0); BLOOD UREA NITROGEN 13 mg/dL (7-18); CALCIUM 9.1 mg/dL (8.5-10.1); CHLORIDE 104 mmol/L (98-107); CO2 27 mmol/L (21-32); GLUCOSE,RANDOM 127 mg/dL (74-106); POTASSIUM 3.5 mmol/L (3.5-5.1); SGOT/AST 13 U/L (15-37); SGPT/ALT 21 U/L (12-78); SODIUM 142 mmol/L (136-145); TOT PROT 6.8 g/dl (6.4-8.2)
[2017-05-01 12:41] LABS: BILIRUBIN,DIRECT < 0.2 mg/dL (0.0-0.2); MAGNESIUM 1.7 mg/dL (1.8-2.4)
[2017-05-01] MEDS ORDERED: MAGNESIUM SULF 50% (8.12 MEQ/2 ML-1 GM VIAL) IVPB ONE (13:30)
[2017-05-01] MEDS ORDERED: ALTEPLASE 2 MG VIAL IVPUSH ONE (14:11)
[2017-05-01 16:58] VITALS: TEMP 98.3
[2017-05-01] MEDS ORDERED: PORTA CATH FLUSH 10 ML IVPUSH ONE (16:59)
[2017-05-01 18:54] VITALS: BP 126/72; PULSE 74
== END 2017-05-01 19:11 | disposition home or self-care (01) ==
LOC: JONCCHEMO 07:03 → J7W 12:50 → JONCCHEMO 19:11
PROVIDERS: ATTEND Internal Medicine Hematology & Oncology
DX: Z51.11 Encounter for antineoplastic chemotherapy (principal); C50.911 Malignant neoplasm of unspecified site of right female breast
CPT/HCPCS: 36415; 80053; 80076; 83735; 85025; 96367; 96375; 96413; 96417; J1100; J2997; J9306; J9355

== ENCOUNTER 2017-05-08 07:21 | Day surgery (SDC) | payer OTHER ==
[2017-05-08] MEDS ORDERED: [UNRECOGNIZED DRUG - OTHER] IVPB ONE (10:00)
[2017-05-08] MEDS ORDERED: DEXAMETHASONE IVPB ONE (10:00)
[2017-05-08] MEDS ORDERED: RANITIDINE IVPB ONE (10:00)
[2017-05-08] MEDS ORDERED: DIPHENHYDRAMINE IVPB ONE (10:00)
[2017-05-08] MEDS ORDERED: PACLITAXEL 138 MG in SODIUM CHLORIDE 250 ML IVPB ONE (10:30)
[2017-05-08 10:58] LABS: BASO % 0.5 % (0-2.0); EOS % 2.3 % (0-4.5); HEMATOCRIT 32.5 % (32.4-45.2); MCH 31.1 pg (25.7-33.7); MCHC 33.8 g/dl (32.0-36.0); MEAN CELL VOLUME 91.8 fl (80-96); MEAN PLT VOLUME 8.4 fl (7.5-11.1); MONO % 6.6 % (3.8-10.2); NEUT % 68.6 % (42.8-82.8); PLATELET COUNT 281 K/MM3 (134-434); RBC 3.54 M/mm3 (3.60-5.2); RDW 16.6 % (11.6-15.6); WHITE BLOOD COUNT 7.1 K/mm3 (4.0-10.0)
[2017-05-08 11:22] LABS: ALBUMIN 3.4 g/dl (3.4-5.0); ANION GAP 12 (8-16); BILIRUBIN,DIRECT < 0.2 mg/dL (0.0-0.2); BILIRUBIN,TOTAL 0.4 mg/dL (0.2-1.0); BLOOD UREA NITROGEN 14 mg/dL (7-18); CHLORIDE 103 mmol/L (98-107); CO2 26 mmol/L (21-32); CREATININE 1.1 mg/dL (0.55-1.02); GLUCOSE,RANDOM 119 mg/dL (74-106); MAGNESIUM 2.1 mg/dL (1.8-2.4); POTASSIUM 3.5 mmol/L (3.5-5.1); SGOT/AST 12 U/L (15-37); SGPT/ALT 21 U/L (12-78); SODIUM 141 mmol/L (136-145); TOT PROT 6.9 g/dl (6.4-8.2)
[2017-05-08 11:23] LABS: ALK PHOS 85 U/L (45-117)
[2017-05-08 16:23] VITALS: TEMP 98.2
[2017-05-08] MEDS ORDERED: PORTA CATH FLUSH 10 ML IVPUSH ONE (16:23)
[2017-05-08 16:26] VITALS: BP 120/84; PULSE 60
== END 2017-05-08 14:15 | disposition home or self-care (01) ==
LOC: JONCCHEMO 07:21 → J7W 12:19 → JONCCHEMO 14:15
PROVIDERS: ATTEND Internal Medicine Hematology & Oncology
DX: Z51.11 Encounter for antineoplastic chemotherapy (principal); C50.911 Malignant neoplasm of unspecified site of right female breast
CPT/HCPCS: 36415; 80053; 80076; 83735; 85025; 96367; 96375; 96413; J1100

== ENCOUNTER 2017-05-15 07:22 | Day surgery (SDC) | payer OTHER ==
[2017-05-15] MEDS ORDERED: DEXAMETHASONE INJECTION 20 MG, DIPHENHYDRAMINE 25 MG, RANITIDINE INJECTION 50 MG in SOD... IVPB ONE ×2 (08:00→15:00)
[2017-05-15] MEDS ORDERED: PACLITAXEL 138 MG in SODIUM CHLORIDE 250 ML IVPB ONE (08:30)
[2017-05-15 12:16] LABS: HEMATOCRIT 31.5 % (32.4-45.2); HEMOGLOBIN 10.5 GM/dL (10.7-15.3); MCH 30.7 pg (25.7-33.7); MCHC 33.3 g/dl (32.0-36.0); MEAN CELL VOLUME 92.1 fl (80-96); MEAN PLT VOLUME 8.7 fl (7.5-11.1); PLATELET COUNT 221 K/MM3 (134-434); RBC 3.41 M/mm3 (3.60-5.2); RDW 17.2 % (11.6-15.6); WHITE BLOOD COUNT 7.3 K/mm3 (4.0-10.0)
[2017-05-15 12:40] LABS: ALBUMIN 3.6 g/dl (3.4-5.0); ANION GAP 10 (8-16); BLOOD UREA NITROGEN 17 mg/dL (7-18); CALCIUM 8.8 mg/dL (8.5-10.1); CHLORIDE 103 mmol/L (98-107); CO2 29 mmol/L (21-32); GLUCOSE,RANDOM 135 mg/dL (74-106); POTASSIUM 3.3 mmol/L (3.5-5.1); SODIUM 142 mmol/L (136-145)
[2017-05-15 12:44] LABS: ALK PHOS 81 U/L (45-117); BILIRUBIN,DIRECT < 0.2 mg/dL (0.0-0.2); BILIRUBIN,TOTAL 0.5 mg/dL (0.2-1.0); CREATININE 1.1 mg/dL (0.55-1.02); SGOT/AST 11 U/L (15-37); SGPT/ALT 21 U/L (12-78); TOT PROT 6.4 g/dl (6.4-8.2)
[2017-05-15 13:13] LABS: ACANTHOCYTES 0; ANISOCYTOSIS 0; HELMET CELLS 0; HOWELL-JOLLY BODIES 0; MACROCYTOSIS 0; OVALOCYTE 0; PLATELET ESTIMATE NORMAL; ROULEAU 0; SICKELED CELLS 0; TARGET CELLS 0; TEAR DROP CELLS 0; TOXIC GRANULATION 0
[2017-05-15 13:30] VITALS: BP 108/67; PULSE 70; TEMP 98.1
[2017-05-15] MEDS ORDERED: PORTA CATH FLUSH 10 ML IVPUSH ONE ×2 (14:00→17:24)
[2017-05-15] MEDS ORDERED: POTASSIUM CHLORIDE TABS 20 MEQ TABLET.ER (FP) PO ONE (14:00)
== END 2017-05-15 17:26 | disposition home or self-care (01) ==
LOC: JONCCHEMO 07:22 → J7W 12:32 → JONCCHEMO 17:26
PROVIDERS: ATTEND Internal Medicine Hematology & Oncology
DX: Z51.11 Encounter for antineoplastic chemotherapy (principal); C50.911 Malignant neoplasm of unspecified site of right female breast
CPT/HCPCS: 36415; 80053; 80076; 83735; 85025; 96367; 96375; 96413; J1100

== ENCOUNTER 2017-05-22 07:25 | Day surgery (SDC) | payer OTHER ==
[2017-05-22] MEDS ORDERED: DEXAMETHASONE INJECTION 20 MG, DIPHENHYDRAMINE 25 MG, RANITIDINE INJECTION 50 MG in SOD... IVPB ONE (08:00)
[2017-05-22] MEDS ORDERED: ACETAMINOPHEN 325 MG TABLET (FP) PO ONE (08:00)
[2017-05-22] MEDS ORDERED: PERTUZUMAB 420 MG in SODIUM CHLORIDE 250 ML IVPB ONE (08:30)
[2017-05-22] MEDS ORDERED: TRASTUZUMAB IVPB ONE ×2 (09:00)
[2017-05-22] MEDS ORDERED: SODIUM CHLORIDE IVPB ONE ×2 (09:00)
[2017-05-22] MEDS ORDERED: PACLITAXEL 138 MG in SODIUM CHLORIDE 250 ML IVPB ONE (09:30)
[2017-05-22 12:12] LABS: BASO % 0.6 % (0-2.0); EOS % 0.7 % (0-4.5); HEMATOCRIT 30.4 % (32.4-45.2); HEMOGLOBIN 10.3 GM/dL (10.7-15.3); LYMPH % 18.9 % (8-40); MCHC 33.8 g/dl (32.0-36.0); MEAN CELL VOLUME 91.7 fl (80-96); MONO % 7.4 % (3.8-10.2); NEUT % 72.4 % (42.8-82.8); PLATELET COUNT 238 K/MM3 (134-434); RBC 3.32 M/mm3 (3.60-5.2); RDW 17.2 % (11.6-15.6); WHITE BLOOD COUNT 7.7 K/mm3 (4.0-10.0)
[2017-05-22 12:49] LABS: ANION GAP 11 (8-16); CHLORIDE 105 mmol/L (98-107); CO2 26 mmol/L (21-32); POTASSIUM 3.6 mmol/L (3.5-5.1); SODIUM 142 mmol/L (136-145)
[2017-05-22 12:56] LABS: ALBUMIN 3.6 g/dl (3.4-5.0); ALK PHOS 80 U/L (45-117); BILIRUBIN,TOTAL 0.4 mg/dL (0.2-1.0); BLOOD UREA NITROGEN 13 mg/dL (7-18); GLUCOSE,RANDOM 126 mg/dL (74-106); SGOT/AST 16 U/L (15-37); SGPT/ALT 18 U/L (12-78); TOT PROT 6.6 g/dl (6.4-8.2)
[2017-05-22] MEDS ORDERED: SODIUM CHLORIDE 250 ML IV SCH (13:15)
[2017-05-22] MEDS ORDERED: ONDANSETRON 4 MG/2 ML VIAL IVPB ONE (14:00)
[2017-05-22] MEDS ORDERED: ACETAMINOPHEN 325 MG TABLET (FP) ONE (15:31)
[2017-05-22 15:36] LABS: ALBUMIN 3.5 g/dl (3.4-5.0); MAGNESIUM 1.5 mg/dL (1.8-2.4)
[2017-05-22 15:41] LABS: ALK PHOS 81 U/L (45-117); BILIRUBIN,DIRECT < 0.2 mg/dL (0.0-0.2); BILIRUBIN,TOTAL 0.3 mg/dL (0.2-1.0); SGOT/AST 10 U/L (15-37); SGPT/ALT 17 U/L (12-78); TOT PROT 6.4 g/dl (6.4-8.2)
[2017-05-22 16:53] VITALS: TEMP 97.3
[2017-05-22] MEDS ORDERED: PORTA CATH FLUSH 10 ML IVPUSH ONE ×2 (17:00→17:14)
[2017-05-22 18:17] VITALS: BP 118/72; PULSE 64
== END 2017-05-22 16:15 | disposition home or self-care (01) ==
LOC: JONCCHEMO 07:25 → J7W 13:00 → JONCCHEMO 16:15
PROVIDERS: ATTEND Internal Medicine Hematology & Oncology
DX: Z51.11 Encounter for antineoplastic chemotherapy (principal); C50.911 Malignant neoplasm of unspecified site of right female breast
CPT/HCPCS: 36415; 80053; 80076; 83735; 85025; 96361; 96367; 96375; 96413; 96417; J1100; J7030; J9306; J9355

== ENCOUNTER 2017-07-01 07:16 | Day surgery (SDC) | payer OTHER ==
[2017-06-23 14:50] VITALS: BMI 49.5
--- NOTE | 2017-06-25 14:47 | HP ---
Admitting History and Physical - Primary Care Physician PCP: Mendoza Oquendo - Admission Chief Complaint: Right breast cancer History of Present Illness: 62 year old female S/P neoadjuvant chemotherapy for a right 8:00 to 9:00 moderately differnetiated 1.2 cm invasive ductal carcinoma Right axillary core biopsy was positive for axillary metastatic diseases adenocarcinoma diagnosed . History Source: Patient Limitations to Obtaining History: No Limitations, Other (obesity) - Past Medical History Cardiovascular: Yes: HTN Pulmonary: Yes: Asthma Gastrointestinal: Yes: GERD - Smoking History Smoking history: Never smoked Have you smoked in the past 12 months: No - Alcohol/Substance Use Hx Alcohol Use: Yes (OCCASIONALLY) Home Medications - Allergies Allergies/Adverse Reactions: Allergies Allergy/AdvReac Type Severity Reaction Status Date / Time No Known Allergies Allergy Verified 02/25/17 09:53 - Home Medications Home Medications: Ambulatory Orders Albuterol Sulfate Inhaler - [Ventolin HFA Inhaler -] 1 puff IH PRN PRN 02/18/17 Amlodipine Besylate 5 mg PO DAILY 02/18/17 Atenolol/Chlorthalidone [Atenolol-Chlorthalidone 100-25] 1 tab PO DAILY Omeprazole 20 mg PO BID 02/18/17 Salmeterol/Fluticasone [Advair 500Mcg/50Mcg -] 1 inh IN BID 02/18/17 Magnesium 400 mg PO DAILY 06/23/17 Potassium Chloride [Klor-Con 10] 10 meq PO DAILY 06/23/17 Family Disease History - Family Disease History Family History: Denies Physical Examination Constitutional: Yes: Well Nourished Breast(s): Yes: Other (diffusely nodualr bilaterally can not feel right breast cancer or axillary nodes . left breast negative) Problem List - Problems (1) Breast cancer, right Code(s): C50.911 - MALIGNANT NEOPLASM OF UNSP SITE OF RIGHT FEMALE BREAST Qualifiers: Breast location: overlapping sites of breast Estrogen receptor status: positive Patient sex: female Qualified Code(s): C50.811 - Malignant neoplasm of overlapping sites of right female breast; Z17.0 - Estrogen receptor positive status [ER+]; Z17.0 - Estrogen receptor positive status [ER+] Assessment/Plan Right breast wide excision lymphoscintogram,sentenel node biopsy possible axillary dissection mammogram needle localization
[2017-07-01] MEDS ORDERED: TETRACAINE 0.5% OPHTH SOLN 2 ML BOTTLE ONE (12:38)
[2017-07-01] MEDS ORDERED: EPI-SHUGARCAINE (EPINEPHRINE 0.025% & LIDOCAINE-PF 0.75%) 4ML ONE (12:38)
[2017-07-01] MEDS ORDERED: POVIDONE-IODINE 5% OPHTHALMIC PREP 30 ML SOLUTION ONE (12:38)
[2017-07-01] MEDS ORDERED: ACETYLCHOLINE 1:100 INTRA-OCUL 20 MG/2 ML KIT ONE (12:38)
[2017-07-01] MEDS ORDERED: BETAXOLOL HCL 0.25% OPHTHALMIC 10 ML DROPSBTL ONE (12:38)
[2017-07-01] MEDS ORDERED: BACITRACIN/POLYMYXIN OPH OINT 3.5 GM TUBE ONE (12:38)
[2017-07-01] MEDS ORDERED: NEO/POLYMYX B SULF/DEXAMETH OPHTHALMIC 5ML BOTTLE ONE (12:39)
[2017-07-01] MEDS ORDERED: fentaNYL CITRATE 250 MCG/5 ML VIAL ONE (14:35)
[2017-07-01] MEDS ORDERED: MIDAZOLAM HCL 2 MG/2 ML SINGLE DOSE VIAL ONE (14:36)
[2017-07-01] MEDS ORDERED: ROCURONIUM BROMIDE 50 MG/5 ML VIAL ONE (14:36)
[2017-07-01] MEDS ORDERED: BUPIVACAINE HCL/PF 2.5 MG/ML - 30 ML VIAL IJ ONE (14:40)
[2017-07-01] MEDS ORDERED: LIDOCAINE HCL 1%, 10 MG/ML (20ML VIAL) ONE (14:40)
[2017-07-01] MEDS ORDERED: ISOSULFAN BLUE 10 MG/ML VIAL SQ ONE (14:41)
[2017-07-01] MEDS ORDERED: ONDANSETRON 4 MG/2 ML VIAL IVPUSH PRN ×2 (14:47→17:41)
[2017-07-01] MEDS ORDERED: KETOROLAC TROMETHAMINE 30 MG/1 ML VIAL IVPUSH PRN (14:47)
[2017-07-01] MEDS ORDERED: DEXTROSE 5%-0.45% SALINE 1,000 ML IV SCH (15:00)
[2017-07-01] MEDS ORDERED: ceFAZolin SODIUM 1 GM VIAL ONE ×2 (15:22→15:29)
[2017-07-01] MEDS ORDERED: LACTATED RINGERS SOLUTION 1,000 ML IV SCH (17:00)
[2017-07-01] MEDS ORDERED: LIDOCAINE HCL 1%, 10 MG/ML (50 mL VIAL) IJ ONE (17:13)
[2017-07-01] MEDS ORDERED: BUPIVACAINE HCL/PF 0.25% (2.5MG/ML) 10 ML VIAL IJ ONE (17:13)
[2017-07-01] MEDS ORDERED: oxyCODONE HCL 5 MG TABLET PO PRN (17:41)
[2017-07-01] MEDS ORDERED: ALBUTEROL SO4 18 GM HFA INHALER IH PRN (17:42)
[2017-07-01] MEDS ORDERED: ONDANSETRON 4 MG/2 ML VIAL IVPUSH ONE (17:48)
[2017-07-01] MEDS ORDERED: ACETAMINOPHEN 325 MG TABLET (FP) PO PRN (17:52)
[2017-07-01] MEDS: DEXTROSE 5%-0.45% SALINE 1,000 ML IV SCH (20:27)
[2017-07-01] MEDS: CEFAZOLIN 1 GM/D5W 1 GM/50 ML BAG IVPB SCH (20:27)
[2017-07-01] MEDS ORDERED: ZOLPIDEM TARTRATE 5 MG TABLET PO PRN (22:00)
[2017-07-01] MEDS: PANTOPRAZOLE 20 MG TABLET (FP) PO SCH (22:22)
[2017-07-02] MEDS: BUDESONIDE/FORMETEROL FUMARATE 160/4.5 mcg INHALER IH SCH ×3 (01:12→21:13)
[2017-07-02] MEDS: CEFAZOLIN 1 GM/D5W 1 GM/50 ML BAG IVPB SCH ×4 (02:14→20:06)
--- NOTE | 2017-07-02 09:08 | PN ---
Progress Note, Physician Chief Complaint: Right breast cancer with axillary mets S/P chemotherapy and partial mastectomy axillary node dissection ,life port insertion POD #1 History of Present Illness: patient is eating no nausea or vomiting ,pain managed with oxycodone, JING out put 175cc in 12 hours, notified Dr Oquendo and will monitor output till this afternoon before discharging patient - Current Medication List Current Medications: Active Medications Acetaminophen (Tylenol -) 650 mg PO Q4H PRN PRN Reason: FEVER Albuterol Sulfate (Ventolin Hfa Inhaler -) 1 puff IH Q24H PRN PRN Reason: ASTHMA Amlodipine Besylate (Norvasc -) 5 mg PO DAILY [facility] Atenolol (Tenormin -) 100 mg PO DAILY [facility] Budesonide/Formoterol Fumarate (Symbicort 160/4.5mcg -) 2 puff IH BID [facility] Last Admin: 07/02/17 01:12 Dose: 2 puff Chlorthalidone (Hygroton -) 25 mg PO DAILY [facility] Dextrose/Sodium Chloride (D5-1/2ns -) 1,000 mls @ 100 mls/hr IV ASDIR [facility] Last Admin: 07/01/17 20:27 Dose: 100 mls/hr Cefazolin Sodium (Ancef 1 Gm Premixed Ivpb -) 1 gm in 50 mls @ 100 mls/hr IVPB Q6H-IV [facility] Last Admin: 07/02/17 02:14 Dose: 100 mls/hr Ketorolac Tromethamine (Toradol Injection -) 30 mg IVPUSH ONCE PRN PRN Reason: PAIN Stop: 07/06/17 14:46 Ondansetron HCl (Zofran Injection) 4 mg IVPUSH Q6H PRN PRN Reason: NAUSEA Oxycodone HCl (Roxicodone -) 5 mg PO Q4H PRN PRN Reason: PAIN LEVEL 1-5 Pantoprazole Sodium (Protonix -) 20 mg PO BID [facility] Last Admin: 07/01/17 22:22 Dose: 20 mg Potassium Chloride (K-Dur -) 10 meq PO DAILY [facility] Zolpidem Tartrate (Ambien -) 5 mg PO HS PRN PRN Reason: INSOMNIA - Objective Vital Signs: Vital Signs Temperature 97.6 F 07/02/17 05:37 Pulse Rate 69 07/02/17 05:37 Respiratory Rate 20 07/02/17 05:37 Blood Pressure 123/74 07/02/17 05:37 O2 Sat by Pulse Oximetry (%) 94 L 07/02/17 08:47 Constitutional: Yes: No Distress Breast(s): Yes: Other (incision intact with drmabond and axilla steristrip, no hematoma or sewlling, JING output bloody 3/4 bulb is full this am) Problem List - Problems (1) Breast cancer, right Code(s): C50.911 - MALIGNANT NEOPLASM OF UNSP SITE OF RIGHT FEMALE BREAST Qualifiers: Breast location: overlapping sites of breast Estrogen receptor status: positive Patient sex: female Qualified Code(s): C50.811 - Malignant neoplasm of overlapping sites of right female breast; Z17.0 - Estrogen receptor positive status [ER+]; Z17.0 - Estrogen receptor positive status [ER+] Assessment/Plan continue pain management OOb IV antibiotics will monitor drain output till afternoon per Dr Oquendo consider discharge later depending on out of JING drain
[2017-07-02] MEDS ORDERED: POTASSIUM CHLORIDE TABS 20 MEQ TABLET.ER (FP) PO SCH (10:00)
[2017-07-02] MEDS ORDERED: POTASSIUM CHLORIDE TABS 10 MEQ TABLET.ER (FP) PO SCH (10:00)
[2017-07-02] MEDS ORDERED: PATIENT'S OWN MEDICATION (NON-FORMULARY) (Atenolol/Chlorthalidone [Atenolol-Chlorthalidone PO SCH (10:00)
[2017-07-02] MEDS ORDERED: ATENOLOL 50 MG TABLET (FP) PO SCH (10:00)
[2017-07-02] MEDS ORDERED: amLODIPine BESYLATE 5 MG TABLET (FP) PO SCH (10:00)
[2017-07-02] MEDS ORDERED: CHLORTHALIDONE 25 MG TABLET PO SCH (10:00)
[2017-07-02] MEDS: PANTOPRAZOLE 20 MG TABLET (FP) PO SCH ×2 (10:16→21:13)
[2017-07-02] MEDS: DEXTROSE 5%-0.45% SALINE 1,000 ML IV SCH (20:06)
[2017-07-03] MEDS: CEFAZOLIN 1 GM/D5W 1 GM/50 ML BAG IVPB SCH (02:28)
[2017-07-03 06:22] VITALS: BP 106/59; PULSE 64; TEMP 98.1
--- NOTE | 2017-07-03 09:18 | PN ---
Progress Note, Physician Chief Complaint: Right breast cancer with axillary mets S/P neoadjuvant chemotherapy Right partial mastectomy and axillary node dissection POD #2 History of Present Illness: PATIENT is ready for discharge today per Dr Webster and Dr Oquendo ,drain output 130 cc from 11 pm to 830 am. No pain or swelling this am eating no nausea or vomiting - Current Medication List Current Medications: Active Medications Acetaminophen (Tylenol -) 650 mg PO Q4H PRN PRN Reason: FEVER Albuterol Sulfate (Ventolin Hfa Inhaler -) 1 puff IH Q24H PRN PRN Reason: ASTHMA Amlodipine Besylate (Norvasc -) 5 mg PO DAILY [facility] Last Admin: 07/02/17 10:15 Dose: 5 mg Atenolol (Tenormin -) 100 mg PO DAILY [facility] Last Admin: 07/02/17 10:15 Dose: 100 mg Budesonide/Formoterol Fumarate (Symbicort 160/4.5mcg -) 2 puff IH BID [facility] Last Admin: 07/02/17 21:13 Dose: 2 puff Chlorthalidone (Hygroton -) 25 mg PO DAILY [facility] Last Admin: 07/02/17 10:15 Dose: 25 mg Dextrose/Sodium Chloride (D5-1/2ns -) 1,000 mls @ 100 mls/hr IV ASDIR [facility] Last Admin: 07/02/17 20:06 Dose: Not Given Cefazolin Sodium (Ancef 1 Gm Premixed Ivpb -) 1 gm in 50 mls @ 100 mls/hr IVPB Q6H-IV [facility] Last Admin: 07/03/17 02:28 Dose: 100 mls/hr Ketorolac Tromethamine (Toradol Injection -) 30 mg IVPUSH ONCE PRN PRN Reason: PAIN Stop: 07/06/17 14:46 Ondansetron HCl (Zofran Injection) 4 mg IVPUSH Q6H PRN PRN Reason: NAUSEA Oxycodone HCl (Roxicodone -) 5 mg PO Q4H PRN PRN Reason: PAIN LEVEL 1-5 Last Admin: 07/02/17 14:04 Dose: 5 mg Pantoprazole Sodium (Protonix -) 20 mg PO BID [facility] Last Admin: 07/02/17 21:13 Dose: 20 mg Potassium Chloride (K-Dur -) 10 meq PO DAILY [facility] Last Admin: 07/02/17 10:14 Dose: 10 meq Zolpidem Tartrate (Ambien -) 5 mg PO HS PRN PRN Reason: INSOMNIA - Objective Vital Signs: Vital Signs Temperature 98.1 F 07/03/17 06:00 Pulse Rate 64 07/03/17 06:00 Respiratory Rate 19 07/03/17 06:00 Blood Pressure 106/59 07/03/17 06:00 O2 Sat by Pulse Oximetry (%) 98 07/03/17 06:21 Constitutional: Yes: No Distress Breast(s): Yes: Other (Right breast and axilla incision intact soft , no hematoma or swelling,yumiko functioning 130cc output) Problem List - Problems (1) Breast cancer, right Code(s): C50.911 - MALIGNANT NEOPLASM OF UNSP SITE OF RIGHT FEMALE BREAST Qualifiers: Breast location: overlapping sites of breast Estrogen receptor status: positive Patient sex: female Qualified Code(s): C50.811 - Malignant neoplasm of overlapping sites of right female breast; Z17.0 - Estrogen receptor positive status [ER+]; Z17.0 - Estrogen receptor positive status [ER+] Assessment/Plan ready for discharge per Dr Oquendo and Dr Webster empty and record YUMIKO output twice daily no shower follow up next week with Dr Oquendo call office if any sudden swelling right breast or axilla
--- NOTE | 2017-07-03 16:14 | OP ---
DATE OF OPERATION: 07/01/2017 PREOPERATIVE DIAGNOSIS: Right breast cancer with axillary metastasis, status post neoadjuvant chemotherapy. POSTOPERATIVE DIAGNOSIS: Right breast cancer with axillary metastasis, status post neoadjuvant chemotherapy. PROCEDURE PERFORMED: Right breast wide excision, targeted sentinel node biopsy, right axillary lymph node dissection. SURGEON: Osmani Oquendo MD VITICULTURE TEACHER: ANNETTE Waters ANESTHESIA: General, intubated. ESTIMATED BLOOD LOSS: Minimal. COMPLICATIONS: None. DESCRIPTION OF PROCEDURE: The patient was made aware of the risks and benefits of the procedure and consented. Preoperatively, the patient went to the radiology suite, where a needle was placed next to the right breast lesion, as well as the 2 right axillary lesions. She was then brought to Nuclear Medicine, where a radioactive tracer was injected into the peritumoral tissues. She was then placed in the supine position on the operating room table. After general anesthesia was induced, the patient was intubated. One percent isosulfan blue 3 mL was locally infiltrated into the peritumoral tissues. The operative site was prepped and draped in the usual sterile fashion. After waiting approximately 10 minutes, with manual compression, a curvilinear incision was made in the right axilla. During manipulation, the lower axillary localization needle was accidentally pulled out of the body. Using electrocautery, thick skin flaps were made. The remaining localizing needle and wire were then identified. The needle was withdrawn through the puncture site and the wire through the wound. Tissues around it were then sharply excised, which revealed an obvious lymph node, and this was submitted for specimen radiograph. Specimen radiograph failed to identify a clip. Additional segments of axillary suspicious tissue were submitted, to which we were only able to identify 1 lymph node. It was felt at that point to do an axillary dissection. So additional axillary tissues were taken, after first identifying the axillary vein, the long thoracic nerve (which was retracted medially), and the thoracodorsal trunk. The tissues between the two were bluntly and sharply dissected free and submitted in the axillary contents. The wound was copiously irrigated with normal saline and hemostasis maintained by electrocautery. Through an inferior stab wound, a number 10 Obey-Mcmahon drain was placed and sutured to the skin with 2-0 nylon. The skin was then closed with deep 3-0 Vicryl, followed by running subcuticular 4-0 Monocryl. The right breast was then approached. A curvilinear incision was made next to the wire and needle. Using electrocautery, thick skin flaps were made. The needle was withdrawn through the puncture site and the wire through the wound. Tissues around the wire were then sharply excised, and submitted with a short suture superior and long suture lateral. Specimen radiograph confirmed the presence of the indexed lesion. Additional segments were taken superomedial, lateral, deep, anterior and inferior, with clips at the new margin. The wound was copiously irrigated with normal saline and hemostasis maintained by electrocautery. The wound was then closed with deep 3-0 Vicryl, followed by running subcuticular 4-0 Monocryl. Steri-Strips, sterile dressing and a compression bra were then provided. The patient, having tolerated the procedure, was transferred to the recovery room in excellent condition. OSMANI OQUENDO M.D. [id number]
--- NOTE | 2017-07-08 13:09 | PATH ---
Surgical Pathology Report Patient Name: KARLIE VIDAL [facility]. Rec. #: [id number] /Age/Gender: 1955 (Age: 62) / F Account: [id number] Location: [facility] AMBULATORY Taken: 07/01/2017 Received: 07/01/2017 Reported: 07/08/2017 Physicians: Mendoza Oquendo M.D. Specimen(s) Received A: RIGHT BREAST WIDE EXCISION B: RIGHT AXILLARY CONTENTS C: RIGHT BREAST SUPERIOR MARGIN D: RIGHT BREAST INFERIOR MARGIN E: RIGHT BREAST MEDIAL MARGIN F: RIGHT BREAST LATERAL MARGIN G: RIGHT BREAST ANTERIOR MARGIN H: RIGHT BREAST POSTERIOR MARGIN Clinical History Invasive, status post neoadjuvant chemotherapy Final Diagnosis A. 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 THE FOCI OF INVASIVE CARCINOMA ARE PRESENT IN A BACKGROUND OF DENSE HYALINIZING FIBROSIS WITH HISTIOCYTIC REACTION, CONSISTENT WITH PARTIALLY TREATED TUMOR BED TISSUE. RESIDUAL INVASIVE CARCINOMA COMPRISES APPROXIMATELY 10% OF THE TUMOR BEDTISSUE. 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 SURGICAL MARGINS ARE UNINVOLVED BY INVASIVE CARCINOMA; INVASIVE CARCINOMA IS AT 2 MM FROM THE CLOSEST (SUPERIOR) MARGIN. DCIS IS FOCALLY CLOSE TO ( < 1 MM) THE INFERIOR MARGIN. SEE SPECIMENS C-H FOR FINAL MARGINS. NO LYMPHOVASCULAR INVASION IS IDENTIFIED. PRIOR BIOPSY SITE CHANGES ARE PRESENT. PATHOLOGIC STAGE (ypTNM): ypT1a (m) ypN0. SEE ALSO INVASIVE CARCINOMA CASE SUMMARY BELOW. B. AXILLARY CONTENTS, RIGHT, DISSECTION: NINE LYMPH NODES, NEGATIVE FOR METASTATIC CARCINOMA (0/9). SEE NOTE. Note: Three of the lymph nodes show areas of dense fibrous scar, consistent with treated metastatic carcinoma. C. BREAST, RIGHT, SUPERIOR MARGIN, EXCISION: BENIGN BREAST TISSUE SHOWING SCLEROSING ADENOSIS. D. BREAST, RIGHT, INFERIOR MARGIN, EXCISION: BENIGN PREDOMINANTLY FATTY BREAST TISSUE. E. BREAST, RIGHT, MEDIAL MARGIN, EXCISION: DCIS, INTERMEDIATE NUCLEAR GRADE; SURGICAL MARGINS ARE UNINVOLVED BY DCIS, DCIS IS AT 3 MM FROM THE CLOSESTNEW MARGIN. F. BREAST, RIGHT, LATERAL MARGIN, EXCISION: BENIGN BREAST TISSUE. G. BREAST, RIGHT, ANTERIOR MARGIN, EXCISION: BENIGN BREAST TISSUE. H. BREAST, RIGHT, POSTERIOR MARGIN, EXCISION: BENIGN BREAST TISSUE. Comments Breast Invasive Carcinoma: Surgical Pathology Case Summary (Based on AJCC TNM 8 th edition) Procedure _X_ Excision (less than total mastectomy) Specimen Laterality _X_ Right Tumor Size _X_ Greatest dimension of largest invasive focus >1 mm: 5 mm Histologic Type _X_ Invasive carcinoma of no special type (ductal, not otherwise specified) Histologic Grade (Dell Histologic Score) Glandular (Acinar)/Tubular Differentiation _X_ Score 3 (<10% of tumor area forming glandular/tubular structures) Nuclear Pleomorphism _X_ Score 2 Mitotic Rate _X_ Score 1 Overall Grade _X_ Grade 2 (scores of 6 or 7) Tumor Focality _X_ Multiple foci of invasive carcinoma Number of foci: 2 Sizes of individual foci: 5 mm, 1.5 mm Ductal Carcinoma In Situ (DCIS) _X_ DCIS is present in specimen _X_ extensive residual DCIS present after neoadjuvant therapy Margins Invasive Carcinoma Margins _X_ Uninvolved by invasive carcinoma Distance from closest margin (millimeters): 2 mm from superior margin in wide excision A. Final superior margin C is negative for carcinoma. DCIS Margins _X_ Uninvolved by DCIS Distance from closest margin (millimeters): 3 mm from final medial margin E. DCIS is < 1mm from inferior margin in wide excision A. Final inferior margin D is negative for DCIS. Regional Lymph Nodes Number of Lymph Nodes with Macrometastases (>2 mm): 0 Number of Lymph Nodes with Micrometastases (>0.2 mm to 2 mm and/or >200 cells): 0 Number of Lymph Nodes with Isolated Tumor Cells (=0.2 mm and =200 cells): 0 Number of Lymph Nodes Examined: 9 Number of [place] Nodes Examined : 0 Treatment Effect Treatment Effect in the Breast _X_ Probable or definite response to presurgical therapy in the invasive carcinoma Treatment Effect in the Lymph Nodes _X_ No lymph node metastases. Fibrous scarring, possibly related to prior lymph node metastases with pathologic complete response Lymphovascular Invasion _X_ Not identified Pathologic Stage Classification (pTNM, AJCC 8th Edition) Primary Tumor (Invasive Carcinoma) (pT) _X_ ypT1a (m): Tumor >1 mm but =5 mm in greatest dimension (round any measurement >1.0-1.9mm to 2 mm) Regional Lymph Nodes (pN) Category (pN) _X_ ypN0: No regional lymph node metastasis identified or ITCs only Biomarker Studies Results of ER, MD, Her2 and Ki67 studies will be reported separately in an addendum. Electronically Signed Radha Bravo M.D. Addendum Reported: 07/15/2017 Addendum Diagnosis Results of ER, MD, Her2 (IHC) & Ki-67 studies performed on block A9 at [place], [place] ([id number]) are as follows: ER (clone [id number] mouse monoclonal antibody by [employer]): 100 % nuclear staining with strong intensity (Positive). MD (clone16 mouse monoclonal antibody by Leica): 60 % nuclear staining with strong intensity (Positive). Her2 IHC (EP3 from [employer], formerly known as [id number], using [employer] Polymer Refine detection kit): 2+ (Equivocal). Ki-67: ~30% (Intermediate proliferative index). Results of Her2 FISH studies performed and interpreted at [facility] ([id number]) shows the following: Her2: 16.7 CEP17: 1.7 Ratio: 9.8 Interpretation: Positive. Positive and negative controls (internal if applicable) show appropriate results. Formalin fixation and cold ischemic times are within current ASCO/CAP recommendations for ER, MD and Her2 testing. Radha Bravo M.D. Gross Description A. Received in formalin, labeled "right breast wide excision," is a 5.8 x 5.5 x 4.0 cm. sal-yellow, irregular, portion of fibroadipose tissue with a needle localization wire present. There is a short suture marking the superior aspect and a long suture marking the lateral aspect, per the surgeon. There is no skin present. The specimen is inked as follows: superior and lateral blue; inferior green; medial yellow; anterior red; deep black. The specimen is serially sectioned from lateral to medial. Sectioning reveals a central focus of white fibrous tissue measuring 3.0 x 2.5 x 1.1 cm. No definitive residual mass is identified. Associate Professor Of [employer] sections are submitted in 13 cassettes as follows: 1-7-fibrous tissue with inferior margin, sequentially submitted from lateral to medial; 5-3-tfexjrky margin; 10-lateral margin; 11-medial margin; 12-anterior margin; 13-deep margin. Time to formalin fixation: 25 minutes Total formalin fixation time: Approximately 25 hours. B. Received in formalin labeled "right axillary contents," is a 15.0 x 12.5 x 3.5 cm aggregate of yellow, lobulated adipose tissue. Sectioning reveals multiple lymph nodes ranging from 0.3-3.0 cm in greatest dimension. The lymph nodes are submitted in 14 cassettes as follows: 1-multiple whole possible lymph nodes; 2-8-one whole bisected lymph node each; 9-10-one whole trisected lymph node; 11-14-one whole serially sectioned lymph node. C. Received in formalin labeled "right breast superior margin," is a 2.8 x 2.2 x 1.0 cm portion of fibroadipose tissue with a clip marking the new margin, per the surgeon. The new margin is inked blue and the specimen is serially sectioned. The specimen is entirely and sequentially submitted in 4 cassettes. D. Received in formalin labeled "right breast inferior margin," is a 3.3 x 2.7 x 0.7 cm portion of fibroadipose tissue with a clip marking the margin, per the surgeon. The new margin is inked blue and the specimen is serially sectioned. The specimen is entirely and sequentially submitted in 4 cassettes. E. Received in formalin labeled "right breast medial margin," is a 3.0 x 2.4 x 1.0 cm portion of fibroadipose tissue with a clip marking the new margin, per the surgeon. The new margin is inked blue and the specimen is serially sectioned. The specimen is entirely submitted in 3 cassettes. F. Received in formalin labeled "right breast lateral margin," is a 3.0 x 1.5 x 0.6 cm portion of fibroadipose tissue with a clip marking the new margin the surgeon. The new margin is inked blue and the specimen is serially sectioned. The specimen is entirely submitted in 3 cassettes. G. Received in formalin labeled "right breast anterior margin," is a 2.5 x 2.0 x 0.7 cm portion of fibroadipose tissue with a clip marking the new margin, per the surgeon. The new margin is inked blue and the specimen is serially sectioned. The specimen is entirely submitted in 2 cassettes. H. Received in formalin labeled "right breast posterior margin," is a 4.0 x 3.5 x 1.7 cm portion of fibroadipose tissue with a clip marking the new margin, per the surgeon. The new margin is inked blue and the specimen is serially sectioned. The specimen is entirely and sequentially submitted in 8 cassettes. YAJAIRA07/02/2017 bonita07/02/2017
== END 2017-07-03 09:57 | disposition home or self-care (01) ==
LOC: FASU 07:16 → FM/S 19:16 → FASU 07-03 09:57
PROVIDERS: ATTEND Surgery Surgical Oncology
PROC: 0HBT0ZZ Excision of Right Breast, Open Approach (ICD-10-PCS; principal; 2017-07-01 13:00)
PROC: 07B50ZZ Excision of Right Axillary Lymphatic, Open Approach (ICD-10-PCS; 2017-07-01 13:00)
DX: C50.811 Malignant neoplasm of overlapping sites of right female breast (principal); C77.3 Secondary and unspecified malignant neoplasm of axilla and upper limb lymph nodes; Z17.0 Estrogen receptor positive status [ER+]; Z92.21 Personal history of antineoplastic chemotherapy; I10 Essential (primary) hypertension; J45.909 Unspecified asthma, uncomplicated; K21.9 Gastro-esophageal reflux disease without esophagitis
CPT/HCPCS: 19281; 19286; 78195-TC; 88307-TC; 94010; 94760; A9541

== ENCOUNTER 2017-08-14 07:32 | Day surgery (SDC) | payer OTHER ==
[~2017-08-14 07:32] MED LIST changes: -ACETAMINOPHEN 325 MG TABLET (FP) PO ONE; +DEXAMETHASONE INJECTION 20 MG, DIPHENHYDRAMINE 25 MG, RANITIDINE INJECTION 50 MG in SOD... IVPB ONE; -DEXAMETHASONE IVPB ONE; -DIPHENHYDRAMINE IVPB ONE; +PACLITAXEL 138 MG in SODIUM CHLORIDE 250 ML IVPB ONE; -PACLITAXEL IVPB ONE; -PERTUZUMAB 840 MG in SODIUM CHLORIDE 250 ML IVPB ONE; -RANITIDINE IVPB ONE; -SODIUM CHLORIDE IVPB ONE; -TRASTUZUMAB IVPB ONE; -[UNRECOGNIZED DRUG - OTHER] IVPB ONE
[2017-08-14] MEDS ORDERED: DEXAMETHASONE INJECTION 20 MG, DIPHENHYDRAMINE 25 MG in SODIUM CHLORIDE 100 ML IVPB ONE (10:00)
[2017-08-14] MEDS ORDERED: ACETAMINOPHEN 325 MG TABLET (FP) PO ONE (10:00)
[2017-08-14] MEDS ORDERED: PERTUZUMAB 840 MG in SODIUM CHLORIDE 250 ML IVPB ONE (10:30)
[2017-08-14] MEDS ORDERED: SODIUM CHLORIDE IVPB ONE (11:30)
[2017-08-14] MEDS ORDERED: TRASTUZUMAB IVPB ONE (11:30)
[2017-08-14 11:50] LABS: BASO % 0.5 % (0-2.0); EOS % 2.1 % (0-4.5); HEMATOCRIT 36.6 % (32.4-45.2); LYMPH % 25.4 % (8-40); MCH 29.3 pg (25.7-33.7); MCHC 32.8 g/dl (32.0-36.0); MEAN CELL VOLUME 89.4 fl (80-96); MEAN PLT VOLUME 9.3 fl (7.5-11.1); PLATELET COUNT 203 K/MM3 (134-434); RBC 4.09 M/mm3 (3.60-5.2); RDW 15.2 % (11.6-15.6); WHITE BLOOD COUNT 5.8 K/mm3 (4.0-10.0)
[2017-08-14 12:24] LABS: ALBUMIN 3.6 g/dl (3.4-5.0); ANION GAP 8 (8-16); BILIRUBIN,DIRECT < 0.2 mg/dL (0.0-0.2); BILIRUBIN,TOTAL 0.3 mg/dL (0.2-1.0); BLOOD UREA NITROGEN 18 mg/dL (7-18); CHLORIDE 105 mmol/L (98-107); CO2 27 mmol/L (21-32); GLUCOSE,RANDOM 101 mg/dL (74-106); MAGNESIUM 1.9 mg/dL (1.8-2.4); POTASSIUM 3.7 mmol/L (3.5-5.1); SGOT/AST 14 U/L (15-37); SGPT/ALT 19 U/L (12-78); SODIUM 140 mmol/L (136-145); TOT PROT 6.8 g/dl (6.4-8.2)
[2017-08-14 12:25] LABS: ALK PHOS 97 U/L (45-117)
[2017-08-14 18:47] VITALS: TEMP 98.5
[2017-08-14 18:51] VITALS: BP 126/63; PULSE 66
[2017-08-14] MEDS ORDERED: PORTA CATH FLUSH 10 ML IVPUSH ONE (18:51)
== END 2017-08-14 18:45 | disposition home or self-care (01) ==
LOC: JONCCHEMO 07:32 → J7W 13:47 → JONCCHEMO 18:45
PROVIDERS: ATTEND Internal Medicine Hematology & Oncology
DX: Z51.11 Encounter for antineoplastic chemotherapy (principal); C50.911 Malignant neoplasm of unspecified site of right female breast
CPT/HCPCS: 36415; 80053; 80076; 83735; 85025; 96367; 96375; 96413; 96415; 96417; J1100; J9306; J9355

== ENCOUNTER 2017-09-04 07:42 | Day surgery (SDC) | payer OTHER ==
[2017-09-04] MEDS ORDERED: ACETAMINOPHEN 325 MG TABLET (FP) PO ONE (08:00)
[2017-09-04] MEDS ORDERED: DEXAMETHASONE INJECTION 20 MG, DIPHENHYDRAMINE 25 MG in SODIUM CHLORIDE 100 ML IVPB ONE (08:00)
[2017-09-04] MEDS ORDERED: PERTUZUMAB 420 MG in SODIUM CHLORIDE 250 ML IVPB ONE (08:30)
[2017-09-04] MEDS ORDERED: SODIUM CHLORIDE IVPB ONE (09:00)
[2017-09-04] MEDS ORDERED: TRASTUZUMAB IVPB ONE (09:00)
[2017-09-04 17:55] VITALS: TEMP 97.9
[2017-09-04 18:06] VITALS: BP 148/73; PULSE 68
[2017-09-04] MEDS ORDERED: PORTA CATH FLUSH 10 ML IVPUSH ONE (18:06)
[2017-09-04 18:57] LABS: BASO % 0.6 % (0-2.0); EOS % 2.8 % (0-4.5); HEMATOCRIT 36.2 % (32.4-45.2); HEMOGLOBIN 11.9 GM/dL (10.7-15.3); LYMPH % 20.9 % (8-40); MCHC 32.8 g/dl (32.0-36.0); MEAN CELL VOLUME 88.5 fl (80-96); MEAN PLT VOLUME 9.9 fl (7.5-11.1); MONO % 8.9 % (3.8-10.2); NEUT % 66.8 % (42.8-82.8); PLATELET COUNT 203 K/MM3 (134-434); RBC 4.09 M/mm3 (3.60-5.2); RDW 15.4 % (11.6-15.6); WHITE BLOOD COUNT 4.3 K/mm3 (4.0-10.0)
[2017-09-04 19:58] LABS: ALBUMIN 3.7 g/dl (3.4-5.0); ANION GAP 11 (8-16); BILIRUBIN,TOTAL 0.6 mg/dL (0.2-1.0); BLOOD UREA NITROGEN 14 mg/dL (7-18); CHLORIDE 107 mmol/L (98-107); CO2 26 mmol/L (21-32); GLUCOSE,RANDOM 74 mg/dL (74-106); POTASSIUM 3.9 mmol/L (3.5-5.1); SGOT/AST 14 U/L (15-37); SGPT/ALT 25 U/L (12-78); SODIUM 144 mmol/L (136-145); TOT PROT 6.8 g/dl (6.4-8.2)
[2017-09-04 19:59] LABS: ALK PHOS 92 U/L (45-117)
== END 2017-09-04 16:20 | disposition home or self-care (01) ==
LOC: JONCCHEMO 07:42 → J7W 15:09 → JONCCHEMO 16:20
PROVIDERS: ATTEND Internal Medicine Hematology & Oncology
DX: Z51.11 Encounter for antineoplastic chemotherapy (principal); C50.911 Malignant neoplasm of unspecified site of right female breast
CPT/HCPCS: 36415; 80053; 83735; 85025; 96367; 96375; 96413; 96417; J1100; J9306; J9355

== ENCOUNTER 2017-10-23 07:26 | Day surgery (SDC) | payer OTHER ==
[2017-10-23] MEDS ORDERED: ACETAMINOPHEN 325 MG TABLET (FP) PO ONE (10:00)
[2017-10-23] MEDS ORDERED: DEXAMETHASONE INJECTION 20 MG, DIPHENHYDRAMINE 25 MG in SODIUM CHLORIDE 100 ML IVPB ONE (10:00)
[2017-10-23] MEDS ORDERED: PERTUZUMAB 420 MG in SODIUM CHLORIDE 250 ML IVPB ONE (10:30)
[2017-10-23] MEDS ORDERED: TRASTUZUMAB IVPB ONE (11:00)
[2017-10-23] MEDS ORDERED: SODIUM CHLORIDE IVPB ONE (11:00)
[2017-10-23 11:16] LABS: BASO % 0.6 % (0-2.0); EOS % 2.9 % (0-4.5); HEMATOCRIT 36.2 % (32.4-45.2); HEMOGLOBIN 12.1 GM/dL (10.7-15.3); LYMPH % 26.5 % (8-40); MCH 28.7 pg (25.7-33.7); MCHC 33.4 g/dl (32.0-36.0); MEAN CELL VOLUME 86.1 fl (80-96); MEAN PLT VOLUME 8.9 fl (7.5-11.1); MONO % 9.5 % (3.8-10.2); NEUT % 60.5 % (42.8-82.8); PLATELET COUNT 193 K/MM3 (134-434); RBC 4.21 M/mm3 (3.60-5.2); RDW 15.7 % (11.6-15.6); WHITE BLOOD COUNT 4.1 K/mm3 (4.0-10.0)
[2017-10-23 12:18] LABS: ALBUMIN 3.7 g/dl (3.4-5.0); ANION GAP 9 MMOL/L (8-16); BILIRUBIN,TOTAL 0.4 mg/dL (0.2-1.0); BLOOD UREA NITROGEN 17 mg/dL (7-18); CALCIUM 8.8 mg/dL (8.5-10.1); CHLORIDE 109 mmol/L (98-107); CO2 25 mmol/L (21-32); CREATININE 0.9 mg/dL (0.55-1.02); GLUCOSE,RANDOM 99 mg/dL (74-106); POTASSIUM 3.7 mmol/L (3.5-5.1); SGOT/AST 21 U/L (15-37); SGPT/ALT 23 U/L (12-78); SODIUM 143 mmol/L (136-145); TOT PROT 6.8 g/dl (6.4-8.2)
[2017-10-23 12:19] LABS: ALK PHOS 90 U/L (45-117)
[2017-10-23 12:38] LABS: ALBUMIN 3.6 g/dl (3.4-5.0); ALK PHOS 89 U/L (45-117); BILIRUBIN,TOTAL 0.5 mg/dL (0.2-1.0); SGPT/ALT 26 U/L (12-78); TOT PROT 6.9 g/dl (6.4-8.2)
[2017-10-23 12:42] LABS: BILIRUBIN,DIRECT < 0.2 mg/dL (0.0-0.2); MAGNESIUM 1.8 mg/dL (1.8-2.4); SGOT/AST 32 U/L (15-37)
[2017-10-23] MEDS ORDERED: ALTEPLASE 2 MG VIAL CVP ONE (14:30)
[2017-10-23 17:33] VITALS: TEMP 97.8
[2017-10-23] MEDS ORDERED: PORTA CATH FLUSH 10 ML IVPUSH ONE (17:52)
[2017-10-23 17:53] VITALS: BP 130/80; PULSE 64
== END 2017-10-23 17:30 | disposition home or self-care (01) ==
LOC: JONCCHEMO 07:26 → J7W 12:45 → JONCCHEMO 17:30
PROVIDERS: ATTEND Internal Medicine Hematology & Oncology
DX: Z51.11 Encounter for antineoplastic chemotherapy (principal); C50.911 Malignant neoplasm of unspecified site of right female breast
CPT/HCPCS: 36415; 80053; 80076; 83735; 85025; 96367; 96375; 96413; 96417; J1100; J2997; J9306; J9355

== ENCOUNTER 2017-11-13 07:31 | Day surgery (SDC) | payer OTHER ==
[2017-11-13] MEDS ORDERED: ACETAMINOPHEN 325 MG TABLET (FP) PO ONE (10:00)
[2017-11-13] MEDS ORDERED: DEXAMETHASONE INJECTION 20 MG, DIPHENHYDRAMINE 25 MG in SODIUM CHLORIDE 100 ML IVPB ONE (10:00)
[2017-11-13] MEDS ORDERED: PERTUZUMAB 420 MG in SODIUM CHLORIDE 250 ML IVPB ONE (10:30)
[2017-11-13] MEDS ORDERED: SODIUM CHLORIDE IVPB ONE (11:00)
[2017-11-13] MEDS ORDERED: TRASTUZUMAB IVPB ONE (11:00)
[2017-11-13 11:14] LABS: BASO % 0.3 % (0-2.0); EOS % 1.9 % (0-4.5); HEMATOCRIT 36.6 % (32.4-45.2); HEMOGLOBIN 12.2 GM/dL (10.7-15.3); LYMPH % 22.7 % (8-40); MCH 28.8 pg (25.7-33.7); MCHC 33.4 g/dl (32.0-36.0); MEAN CELL VOLUME 86.2 fl (80-96); MEAN PLT VOLUME 8.5 fl (7.5-11.1); MONO % 7.4 % (3.8-10.2); NEUT % 67.7 % (42.8-82.8); PLATELET COUNT 173 K/MM3 (134-434); RBC 4.24 M/mm3 (3.60-5.2); RDW 15.8 % (11.6-15.6); WHITE BLOOD COUNT 4.5 K/mm3 (4.0-10.0)
[2017-11-13 12:06] LABS: ALBUMIN 3.8 g/dl (3.4-5.0); ALK PHOS 103 U/L (45-117); ANION GAP 5 MMOL/L (8-16); BILIRUBIN,DIRECT < 0.2 mg/dL (0.0-0.2); BILIRUBIN,TOTAL 0.5 mg/dL (0.2-1); BLOOD UREA NITROGEN 15 mg/dL (7-18); CALCIUM 8.7 mg/dL (8.5-10.1); CHLORIDE 108 mmol/L (98-107); CO2 29 mmol/L (21-32); GLUCOSE,RANDOM 101 mg/dL (74-106); MAGNESIUM 1.9 mg/dL (1.8-2.4); POTASSIUM 3.6 mmol/L (3.5-5.1); SGOT/AST 16 U/L (15-37); SGPT/ALT 23 U/L (13-61); SODIUM 142 mmol/L (136-145)
[2017-11-13 16:56] VITALS: TEMP 97.9
[2017-11-13 17:01] VITALS: BP 151/82; PULSE 68
[2017-11-13] MEDS ORDERED: PORTA CATH FLUSH 10 ML IVPUSH ONE (17:01)
== END 2017-11-13 15:30 | disposition home or self-care (01) ==
LOC: JONCCHEMO 07:31 → J7W 13:08 → JONCCHEMO 15:30
PROVIDERS: ATTEND Internal Medicine Hematology & Oncology
DX: Z51.11 Encounter for antineoplastic chemotherapy (principal); C50.911 Malignant neoplasm of unspecified site of right female breast
CPT/HCPCS: 36415; 80053; 80076; 83735; 85025; 96367; 96375; 96413; 96417; J1100; J9306; J9355

== ENCOUNTER 2017-12-04 07:39 | Day surgery (SDC) | payer OTHER ==
[2017-12-04] MEDS ORDERED: DEXAMETHASONE INJECTION 20 MG, DIPHENHYDRAMINE 25 MG in SODIUM CHLORIDE 100 ML IVPB ONE (10:00)
[2017-12-04] MEDS ORDERED: ACETAMINOPHEN 325 MG TABLET (FP) PO ONE (10:00)
[2017-12-04] MEDS ORDERED: PERTUZUMAB 420 MG in SODIUM CHLORIDE 250 ML IVPB ONE (10:30)
[2017-12-04 10:44] LABS: BASO % 0.5 % (0-2.0); LYMPH % 20.7 % (8-40); MCH 28.6 pg (25.7-33.7); MCHC 32.3 g/dl (32.0-36.0); MEAN CELL VOLUME 88.3 fl (80-96); MEAN PLT VOLUME 9.2 fl (7.5-11.1); MONO % 6.1 % (3.8-10.2); NEUT % 70.7 % (42.8-82.8); PLATELET COUNT 179 K/MM3 (134-434); RBC 4.19 M/mm3 (3.60-5.2); RDW 15.4 % (11.6-15.6); WHITE BLOOD COUNT 4.6 K/mm3 (4.0-10.0)
[2017-12-04] MEDS ORDERED: TRASTUZUMAB IVPB ONE (11:00)
[2017-12-04] MEDS ORDERED: SODIUM CHLORIDE IVPB ONE (11:00)
[2017-12-04 11:20] LABS: ALBUMIN 3.5 g/dl (3.4-5.0); BILIRUBIN,DIRECT 0.1 mg/dL (0.0-0.2); BILIRUBIN,TOTAL 0.4 mg/dL (0.2-1); MAGNESIUM 1.8 mg/dL (1.8-2.4); TOT PROT 6.6 g/dl (6.4-8.2)
[2017-12-04 11:21] LABS: ALBUMIN 3.4 g/dl (3.4-5.0); ALK PHOS 95 U/L (45-117); ANION GAP 7 MMOL/L (8-16); BILIRUBIN,TOTAL 0.4 mg/dL (0.2-1); BLOOD UREA NITROGEN 18 mg/dL (7-18); CALCIUM 9.1 mg/dL (8.5-10.1); CHLORIDE 108 mmol/L (98-107); CO2 26 mmol/L (21-32); CREATININE 1.1 mg/dL (0.55-1.3); GLUCOSE,RANDOM 135 mg/dL (74-106); POTASSIUM 3.7 mmol/L (3.5-5.1); SGOT/AST 19 U/L (15-37); SGPT/ALT 19 U/L (13-61); SODIUM 141 mmol/L (136-145); TOT PROT 6.6 g/dl (6.4-8.2)
[2017-12-04 14:43] VITALS: TEMP 97.5
[2017-12-04] MEDS ORDERED: PORTA CATH FLUSH 10 ML IVPUSH ONE (14:43)
[2017-12-04 14:45] VITALS: BP 138/78; PULSE 62
== END 2017-12-04 14:20 | disposition home or self-care (01) ==
LOC: JONCCHEMO 07:39 → J7W 12:25 → JONCCHEMO 14:20
PROVIDERS: ATTEND Internal Medicine Hematology & Oncology
DX: Z51.11 Encounter for antineoplastic chemotherapy (principal); C50.911 Malignant neoplasm of unspecified site of right female breast
CPT/HCPCS: 36415; 80053; 80076; 83735; 85025; 96367; 96375; 96413; 96417; J1100; J9306; J9355

== ENCOUNTER 2017-12-25 07:28 | Day surgery (SDC) | payer OTHER ==
[2017-12-25] MEDS ORDERED: ACETAMINOPHEN 325 MG TABLET (FP) PO ONE (10:00)
[2017-12-25] MEDS ORDERED: DEXAMETHASONE INJECTION 20 MG, DIPHENHYDRAMINE 25 MG in SODIUM CHLORIDE 100 ML IVPB ONE (10:00)
[2017-12-25] MEDS ORDERED: PERTUZUMAB 420 MG in SODIUM CHLORIDE 250 ML IVPB ONE (10:30)
[2017-12-25] MEDS ORDERED: SODIUM CHLORIDE IVPB ONE (11:00)
[2017-12-25] MEDS ORDERED: TRASTUZUMAB IVPB ONE (11:00)
[2017-12-25 12:28] LABS: BASO % 0.6 % (0-2.0); EOS % 2.9 % (0-4.5); HEMATOCRIT 37.2 % (32.4-45.2); HEMOGLOBIN 12.1 GM/dL (10.7-15.3); LYMPH % 22.8 % (8-40); MCH 29.2 pg (25.7-33.7); MCHC 32.6 g/dl (32.0-36.0); MEAN CELL VOLUME 89.4 fl (80-96); MEAN PLT VOLUME 9.6 fl (7.5-11.1); MONO % 6.9 % (3.8-10.2); NEUT % 66.8 % (42.8-82.8); PLATELET COUNT 200 K/MM3 (134-434); RBC 4.16 M/mm3 (3.60-5.2); RDW 15.2 % (11.6-15.6)
[2017-12-25 13:10] LABS: ALBUMIN 3.6 g/dl (3.4-5.0); ALK PHOS 92 U/L (45-117); ANION GAP 8 MMOL/L (8-16); BILIRUBIN,DIRECT 0.2 mg/dL (0.0-0.2); BILIRUBIN,TOTAL 0.6 mg/dL (0.2-1); BLOOD UREA NITROGEN 14 mg/dL (7-18); CALCIUM 9.4 mg/dL (8.5-10.1); CHLORIDE 104 mmol/L (98-107); CO2 29 mmol/L (21-32); GLUCOSE,RANDOM 109 mg/dL (74-106); POTASSIUM 3.5 mmol/L (3.5-5.1); SGOT/AST 17 U/L (15-37); SGPT/ALT 18 U/L (13-61); SODIUM 141 mmol/L (136-145); TOT PROT 6.7 g/dl (6.4-8.2)
[2017-12-25] MEDS ORDERED: PORTA CATH FLUSH 10 ML IVPUSH ONE (14:42)
[2017-12-25 14:43] VITALS: PULSE 53; TEMP 97.9
[2017-12-25 14:46] VITALS: BP 109/54
== END 2017-12-25 14:50 | disposition home or self-care (01) ==
LOC: JONCCHEMO 07:28 → J7W 12:50 → JONCCHEMO 14:50
PROVIDERS: ATTEND Internal Medicine Hematology & Oncology
DX: Z51.11 Encounter for antineoplastic chemotherapy (principal); C50.911 Malignant neoplasm of unspecified site of right female breast
CPT/HCPCS: 36415; 80053; 80076; 83735; 85025; 96367; 96375; 96413; 96417; J1100; J9306; J9355

== ENCOUNTER 2018-01-22 07:10 | Day surgery (SDC) | payer OTHER ==
[2018-01-22] MEDS ORDERED: DEXAMETHASONE SODIUM PHOSPHATE 8 MG, DIPHENHYDRAMINE 25 MG in SODIUM CHLORIDE 100 ML IVPB ONE (10:00)
[2018-01-22] MEDS ORDERED: ACETAMINOPHEN 325 MG TABLET (FP) PO ONE (10:00)
[2018-01-22 10:19] LABS: BASO % 0.3 % (0-2.0); EOS % 2.6 % (0-4.5); HEMATOCRIT 35.1 % (32.4-45.2); HEMOGLOBIN 12.2 GM/dL (10.7-15.3); MCH 30.8 pg (25.7-33.7); MCHC 34.9 g/dl (32.0-36.0); MEAN CELL VOLUME 88.4 fl (80-96); MEAN PLT VOLUME 9.3 fl (7.5-11.1); NEUT % 76.1 % (42.8-82.8); PLATELET COUNT 207 K/MM3 (134-434); RBC 3.98 M/mm3 (3.60-5.2); RDW 14.5 % (11.6-15.6); WHITE BLOOD COUNT 6.6 K/mm3 (4.0-10.0)
[2018-01-22] MEDS ORDERED: PERTUZUMAB 420 MG in SODIUM CHLORIDE 250 ML IVPB ONE (10:30)
[2018-01-22 10:59] LABS: ALBUMIN 3.7 g/dl (3.4-5.0); ALK PHOS 92 U/L (45-117); ANION GAP 9 MMOL/L (8-16); BILIRUBIN,DIRECT 0.1 mg/dL (0.0-0.2); BILIRUBIN,TOTAL 0.4 mg/dL (0.2-1); BLOOD UREA NITROGEN 16 mg/dL (7-18); CALCIUM 9.2 mg/dL (8.5-10.1); CHLORIDE 106 mmol/L (98-107); CO2 27 mmol/L (21-32); GLUCOSE,RANDOM 100 mg/dL (74-106); MAGNESIUM 1.8 mg/dL (1.8-2.4); POTASSIUM 3.5 mmol/L (3.5-5.1); SGOT/AST 17 U/L (15-37); SGPT/ALT 19 U/L (13-61); SODIUM 142 mmol/L (136-145); TOT PROT 6.8 g/dl (6.4-8.2)
[2018-01-22] MEDS ORDERED: SODIUM CHLORIDE IVPB ONE (11:00)
[2018-01-22] MEDS ORDERED: TRASTUZUMAB IVPB ONE (11:00)
[2018-01-22 15:36] VITALS: TEMP 98
[2018-01-22] MEDS ORDERED: PORTA CATH FLUSH 10 ML IVPUSH ONE (15:50)
[2018-01-22 16:51] VITALS: BP 123/61; PULSE 70
== END 2018-01-22 16:40 | disposition home or self-care (01) ==
LOC: JONCCHEMO 07:10 → J7W 14:30 → JONCCHEMO 16:40
PROVIDERS: ATTEND Internal Medicine Hematology & Oncology
DX: Z51.11 Encounter for antineoplastic chemotherapy (principal); C50.911 Malignant neoplasm of unspecified site of right female breast
CPT/HCPCS: 36415; 71046-TC-FY; 80053; 80076; 83735; 85025; 96367; 96375; 96413; 96417; J9306; J9355

== ENCOUNTER 2018-02-12 06:35 | Day surgery (SDC) | payer OTHER ==
[2018-02-12 09:59] LABS: BASO % 0.4 % (0-2.0); EOS % 3.3 % (0-4.5); HEMATOCRIT 35.5 % (32.4-45.2); HEMOGLOBIN 12.4 GM/dL (10.7-15.3); MCHC 35.1 g/dl (32.0-36.0); MEAN CELL VOLUME 88.5 fl (80-96); MEAN PLT VOLUME 8.9 fl (7.5-11.1); MONO % 6.5 % (3.8-10.2); NEUT % 69.8 % (42.8-82.8); PLATELET COUNT 186 K/MM3 (134-434); RBC 4.01 M/mm3 (3.60-5.2); RDW 14.3 % (11.6-15.6); WHITE BLOOD COUNT 4.9 K/mm3 (4.0-10.0)
[2018-02-12] MEDS ORDERED: DEXAMETHASONE SODIUM PHOSPHATE 8 MG, DIPHENHYDRAMINE 25 MG in SODIUM CHLORIDE 100 ML IVPB ONE (10:00)
[2018-02-12] MEDS ORDERED: ACETAMINOPHEN 325 MG TABLET (FP) PO ONE (10:00)
[2018-02-12] MEDS ORDERED: PERTUZUMAB 420 MG in SODIUM CHLORIDE 250 ML IVPB ONE (10:30)
[2018-02-12 10:36] LABS: ALBUMIN 3.8 g/dl (3.4-5.0); ALK PHOS 87 U/L (45-117); ANION GAP 8 MMOL/L (8-16); BILIRUBIN,TOTAL 0.6 mg/dL (0.2-1); BLOOD UREA NITROGEN 23 mg/dL (7-18); CALCIUM 9.2 mg/dL (8.5-10.1); CHLORIDE 107 mmol/L (98-107); CO2 26 mmol/L (21-32); CREATININE 1.1 mg/dL (0.55-1.3); GLUCOSE,RANDOM 111 mg/dL (74-106); POTASSIUM 3.5 mmol/L (3.5-5.1); SGOT/AST 18 U/L (15-37); SGPT/ALT 21 U/L (13-61); SODIUM 141 mmol/L (136-145); TOT PROT 6.8 g/dl (6.4-8.2)
[2018-02-12 10:37] LABS: ALBUMIN 3.8 g/dl (3.4-5.0); BILIRUBIN,DIRECT 0.1 mg/dL (0.0-0.2); BILIRUBIN,TOTAL 0.5 mg/dL (0.2-1); MAGNESIUM 1.8 mg/dL (1.8-2.4); TOT PROT 6.8 g/dl (6.4-8.2)
[2018-02-12] MEDS ORDERED: TRASTUZUMAB IVPB ONE (11:00)
[2018-02-12] MEDS ORDERED: SODIUM CHLORIDE IVPB ONE (11:00)
[2018-02-12] MEDS ORDERED: ALTEPLASE 2 MG VIAL CVP ONE (13:30)
[2018-02-12 17:59] VITALS: TEMP 97.6
[2018-02-12 18:10] VITALS: BP 119/57; PULSE 57
[2018-02-12] MEDS ORDERED: PORTA CATH FLUSH 10 ML IVPUSH ONE (18:10)
== END 2018-02-12 16:45 | disposition home or self-care (01) ==
LOC: JONCCHEMO 06:35 → J7W 12:18 → JONCCHEMO 16:45
PROVIDERS: ATTEND Internal Medicine Hematology & Oncology
PROC: 3E04305 Introduction of Other Antineoplastic into Central Vein, Percutaneous Approach (ICD-10-PCS; principal; 2018-02-12)
PROC: 3E043GC Introduction of Other Therapeutic Substance into Central Vein, Percutaneous Approach (ICD-10-PCS; 2018-02-12)
DX: Z51.11 Encounter for antineoplastic chemotherapy (principal); C50.911 Malignant neoplasm of unspecified site of right female breast; Z17.0 Estrogen receptor positive status [ER+]
CPT/HCPCS: 36415; 80053; 80076; 83735; 85025; 96367; 96375; 96413; 96417; J2997; J9306; J9355

== ENCOUNTER 2018-03-05 05:12 | Day surgery (SDC) | payer OTHER ==
[2018-03-05] MEDS ORDERED: DEXAMETHASONE SODIUM PHOSPHATE 8 MG, DIPHENHYDRAMINE 25 MG in SODIUM CHLORIDE 100 ML IVPB ONE (08:00)
[2018-03-05] MEDS ORDERED: ACETAMINOPHEN 325 MG TABLET (FP) PO ONE (08:00)
[2018-03-05] MEDS ORDERED: PERTUZUMAB 420 MG in SODIUM CHLORIDE 250 ML IVPB ONE (08:30)
[2018-03-05] MEDS ORDERED: TRASTUZUMAB IVPB ONE (09:00)
[2018-03-05] MEDS ORDERED: SODIUM CHLORIDE IVPB ONE (09:00)
[2018-03-05 11:08] LABS: BASO % 0.5 % (0-2.0); EOS % 2.3 % (0-4.5); HEMATOCRIT 37.3 % (32.4-45.2); HEMOGLOBIN 12.8 GM/dL (10.7-15.3); LYMPH % 21.7 % (8-40); MCH 30.8 pg (25.7-33.7); MCHC 34.3 g/dl (32.0-36.0); MEAN CELL VOLUME 89.8 fl (80-96); MEAN PLT VOLUME 9.5 fl (7.5-11.1); MONO % 5.6 % (3.8-10.2); NEUT % 69.9 % (42.8-82.8); PLATELET COUNT 197 K/MM3 (134-434); RBC 4.16 M/mm3 (3.60-5.2); WHITE BLOOD COUNT 4.5 K/mm3 (4.0-10.0)
[2018-03-05 11:29] LABS: ALBUMIN 3.7 g/dl (3.4-5.0); ALK PHOS 83 U/L (45-117); ANION GAP 3 MMOL/L (8-16); BILIRUBIN,DIRECT 0.1 mg/dL (0.0-0.2); BILIRUBIN,TOTAL 0.5 mg/dL (0.2-1); BLOOD UREA NITROGEN 21 mg/dL (7-18); CALCIUM 9.4 mg/dL (8.5-10.1); CHLORIDE 106 mmol/L (98-107); CO2 32 mmol/L (21-32); GLUCOSE,RANDOM 116 mg/dL (74-106); MAGNESIUM 1.9 mg/dL (1.8-2.4); POTASSIUM 3.9 mmol/L (3.5-5.1); SGOT/AST 16 U/L (15-37); SGPT/ALT 22 U/L (13-61); SODIUM 140 mmol/L (136-145); TOT PROT 6.9 g/dl (6.4-8.2)
[2018-03-05] MEDS ORDERED: PORTA CATH FLUSH 10 ML IVPUSH ONE (17:22)
[2018-03-05 17:23] VITALS: TEMP 97.5
[2018-03-05 17:24] VITALS: BP 147/90; PULSE 56
== END 2018-03-05 14:45 | disposition home or self-care (01) ==
LOC: JONCCHEMO 05:12 → J7W 11:56 → JONCCHEMO 14:45
PROVIDERS: ATTEND Internal Medicine Hematology & Oncology
DX: Z51.11 Encounter for antineoplastic chemotherapy (principal); C50.911 Malignant neoplasm of unspecified site of right female breast
CPT/HCPCS: 36415; 80048; 80076; 83735; 85025; 96367; 96375; 96413; 96417; J9306; J9355

== ENCOUNTER 2018-03-26 07:05 | Day surgery (SDC) | payer OTHER ==
[2018-03-26] MEDS ORDERED: ACETAMINOPHEN 325 MG TABLET (FP) PO ONE (10:00)
[2018-03-26] MEDS ORDERED: DEXAMETHASONE SODIUM PHOSPHATE 8 MG, DIPHENHYDRAMINE 25 MG in SODIUM CHLORIDE 100 ML IVPB ONE (10:00)
[2018-03-26] MEDS ORDERED: PERTUZUMAB 420 MG in SODIUM CHLORIDE 250 ML IVPB ONE (10:30)
[2018-03-26] MEDS ORDERED: TRASTUZUMAB IVPB ONE (11:00)
[2018-03-26] MEDS ORDERED: SODIUM CHLORIDE IVPB ONE (11:00)
[2018-03-26 11:26] LABS: BASO % 0.8 % (0-2.0); EOS % 2.9 % (0-4.5); HEMATOCRIT 37.3 % (32.4-45.2); MCH 31.5 pg (25.7-33.7); MCHC 34.9 g/dl (32.0-36.0); MEAN CELL VOLUME 90.4 fl (80-96); MONO % 5.8 % (3.8-10.2); NEUT % 67.5 % (42.8-82.8); PLATELET COUNT 176 K/MM3 (134-434); RBC 4.13 M/mm3 (3.60-5.2); WHITE BLOOD COUNT 4.3 K/mm3 (4.0-10.0)
[2018-03-26 11:59] LABS: ALBUMIN 3.8 g/dl (3.4-5.0); ALK PHOS 87 U/L (45-117); ANION GAP 9 MMOL/L (8-16); BILIRUBIN,DIRECT 0.2 mg/dL (0.0-0.2); BILIRUBIN,TOTAL 0.6 mg/dL (0.2-1); BLOOD UREA NITROGEN 16 mg/dL (7-18); CALCIUM 9.4 mg/dL (8.5-10.1); CHLORIDE 105 mmol/L (98-107); CO2 27 mmol/L (21-32); CREATININE 0.9 mg/dL (0.55-1.3); GLUCOSE,RANDOM 99 mg/dL (74-106); MAGNESIUM 1.8 mg/dL (1.8-2.4); POTASSIUM 3.6 mmol/L (3.5-5.1); SGOT/AST 15 U/L (15-37); SGPT/ALT 21 U/L (13-61); SODIUM 142 mmol/L (136-145); TOT PROT 6.7 g/dl (6.4-8.2)
[2018-03-26 13:36] VITALS: TEMP 97.9
[2018-03-26] MEDS ORDERED: PORTA CATH FLUSH 10 ML IVPUSH ONE (16:14)
[2018-03-26 16:20] VITALS: BP 153/90; PULSE 52
== END 2018-03-26 14:55 | disposition home or self-care (01) ==
LOC: JONCCHEMO 07:05 → J7W 11:55 → JONCCHEMO 14:55
PROVIDERS: ATTEND Internal Medicine Hematology & Oncology
DX: Z51.11 Encounter for antineoplastic chemotherapy (principal); C50.911 Malignant neoplasm of unspecified site of right female breast
CPT/HCPCS: 36415; 80048; 80076; 83735; 85025; 96367; 96375; 96413; 96417; J9306; J9355

== ENCOUNTER 2018-04-23 05:47 | Day surgery (SDC) | payer OTHER ==
[2018-04-23] MEDS ORDERED: ACETAMINOPHEN 325 MG TABLET (FP) PO ONE (08:00)
[2018-04-23] MEDS ORDERED: DEXAMETHASONE SODIUM PHOSPHATE 8 MG, DIPHENHYDRAMINE 25 MG in SODIUM CHLORIDE 100 ML IVPB ONE (08:00)
[2018-04-23] MEDS ORDERED: PERTUZUMAB 420 MG in SODIUM CHLORIDE 250 ML IVPB ONE (08:30)
[2018-04-23] MEDS ORDERED: TRASTUZUMAB IVPB ONE (09:00)
[2018-04-23] MEDS ORDERED: SODIUM CHLORIDE IVPB ONE (09:00)
[2018-04-23 11:46] LABS: BASO % 0.3 % (0-2.0); EOS % 2.2 % (0-4.5); HEMATOCRIT 36.7 % (32.4-45.2); HEMOGLOBIN 12.8 GM/dL (10.7-15.3); LYMPH % 23.2 % (8-40); MCH 31.3 pg (25.7-33.7); MCHC 34.8 g/dl (32.0-36.0); MEAN PLT VOLUME 9.7 fl (7.5-11.1); MONO % 8.8 % (3.8-10.2); NEUT % 65.5 % (42.8-82.8); PLATELET COUNT 188 K/MM3 (134-434); RBC 4.08 M/mm3 (3.60-5.2); RDW 14.4 % (11.6-15.6); WHITE BLOOD COUNT 5.4 K/mm3 (4.0-10.0)
[2018-04-23 12:07] LABS: ALBUMIN 3.8 g/dl (3.4-5.0); ALK PHOS 80 U/L (45-117); ANION GAP 6 MMOL/L (8-16); BILIRUBIN,TOTAL 0.4 mg/dL (0.2-1); BLOOD UREA NITROGEN 19 mg/dL (7-18); CALCIUM 9.2 mg/dL (8.5-10.1); CHLORIDE 108 mmol/L (98-107); CO2 29 mmol/L (21-32); GLUCOSE,RANDOM 83 mg/dL (74-106); POTASSIUM 3.4 mmol/L (3.5-5.1); SGOT/AST 15 U/L (15-37); SGPT/ALT 21 U/L (13-61); SODIUM 143 mmol/L (136-145); TOT PROT 6.8 g/dl (6.4-8.2)
[2018-04-23 12:08] LABS: ALBUMIN 3.8 g/dl (3.4-5.0); BILIRUBIN,DIRECT 0.1 mg/dL (0.0-0.2); BILIRUBIN,TOTAL 0.4 mg/dL (0.2-1); MAGNESIUM 2.2 mg/dL (1.8-2.4); TOT PROT 6.9 g/dl (6.4-8.2)
[2018-04-23] MEDS ORDERED: PORTA CATH FLUSH 10 ML IVPUSH ONE (17:26)
[2018-04-23 17:27] VITALS: BP 130/71; PULSE 52; TEMP 97.8
== END 2018-04-23 14:20 | disposition home or self-care (01) ==
LOC: JONCCHEMO 05:47 → J7W 12:03 → JONCCHEMO 14:20
PROVIDERS: ATTEND Internal Medicine Hematology & Oncology
DX: Z51.11 Encounter for antineoplastic chemotherapy (principal); C50.911 Malignant neoplasm of unspecified site of right female breast
CPT/HCPCS: 36415; 80053; 80076; 83735; 85025; 96367; 96375; 96413; 96417; J9306; J9355

== ENCOUNTER 2018-04-28 11:37 | Day surgery (SDC) | payer OTHER ==
[2018-04-27 10:41] VITALS: BMI 45.7
[2018-04-28] MEDS ORDERED: PROPOFOL 20 ML ONE (13:55)
[2018-04-28] MEDS ORDERED: MIDAZOLAM HCL 2 MG/2 ML SINGLE DOSE VIAL ONE (13:56)
[2018-04-28] MEDS ORDERED: ACETAMINOPHEN 325 MG TABLET (FP) PO PRN (14:37)
[2018-04-28] MEDS ORDERED: IBUPROFEN 400 MG TABLET (FP) PO PRN (14:37)
[2018-04-28] MEDS ORDERED: ONDANSETRON 4 MG/2 ML VIAL IVPUSH PRN (14:40)
[2018-04-28] MEDS ORDERED: LACTATED RINGERS SOLUTION 1,000 ML IV SCH (14:45)
--- NOTE | 2018-04-28 14:47 | OP ---
Operative Note - Note: Operative Date: 04/28/18 Pre-Operative Diagnosis: PMB Operation: Hysteroscopy. D&C. Findings: Uterus R/V, 14 wks size. Stenotic vagina. Post-Operative Diagnosis: Same as Pre-op Surgeon: Xu Suarez Specimens Removed: EMC, part of polyp. Estimated Blood Loss (mls): 15 Operative Report Dictated: Yes
--- NOTE | 2018-04-28 17:04 | OP ---
DATE OF OPERATION: DATE OF DICTATION: 04/28/2018 PREOPERATIVE DIAGNOSES: 1. Postmenopausal bleeding. 2. Enlarged uterus with leiomyomata. 3. Recent personal history of breast cancer; the patient just completed chemotherapy. POSTOPERATIVE DIAGNOSES: 1. Postmenopausal bleeding. 2. Enlarged uterus with leiomyomata. 3. Recent personal history of breast cancer; the patient just completed chemotherapy. PROCEDURES PERFORMED: 1. Hysteroscopy. 2. Dilatation and curettage, polypectomy. SURGEON: Erick Mcnair MD ANESTHESIOLOGIST: DAVONTE Leon ESTIMATED BLOOD LOSS: 10 to 15 mL. ANESTHESIA: General with LMA. PROCEDURE AND FINDINGS: The patient was placed under anesthesia and positioned in the dorsal lithotomy position. Examination was carried out. Findings were as follows: The vagina was tight, atrophic and stenotic. Examination was difficult. Uterus enlarged, compatible with 14 to 16 weeks of gestation, with decreased mobility. Uterine leiomyomata present. Cervix angled anteriorly and long. Following a routine prep and drape, the cervix was grasped with a tenaculum by the anterior lip. The uterus was sounded and measured about 14 cm. The os was gently dilated and hysteroscopy was carried out. Saline was used as the distending medium. A large reasonably symmetrical cavity was noted. It was lined with completely atrophic endometrium without any buildup of tissue. Low segment right-sided polyp was noted. The endocervix was very long and clearly atrophic. Tubal ostia were identified. Following removal of the hysteroscope, the os was gently dilated and sharp curettage was performed, producing a very small amount of tissue, which was to be expected. Polyp forceps search for polyp produced small pieces that could be part of the polyp. Rather scant specimen was sent together for pathological evaluation. Post dilatation and curettage hysteroscopy was uneventful. The procedure was completed. Mild bleeding from tenaculum site was noted and was the main reason for any blood loss. The patient tolerated the procedure and anesthesia very well. She was awakened and transferred to the PACU, stable and comfortable. MD YANIRA HOPSON/[id number]
[2018-04-28 17:52] VITALS: BP 126/76; PULSE 58; TEMP 97.8
--- NOTE | 2018-04-30 10:50 | PATH ---
Surgical Pathology Report Patient Name: KARLIE VIDAL [facility]. Rec. #: [id number] /Age/Gender: 1955 (Age: 62) / F Account: [id number] Location: [facility] SURGICAL Taken: 04/28/2018 Received: 04/29/2018 Reported: 04/30/2018 Physicians: Xu Suarez MD Specimen(s) Received ENDOMETRIAL CURETTINGS Clinical History Postmenopausal bleeding, uterine fibroids Final Diagnosis ENDOMETRIAL CURETTINGS, POSSIBLE FRAGMENTS OF POLYP: ENDOMETRIAL POLYP. SEPARATE STRIPS OF WEAKLY PROLIFERATIVE ENDOMETRIAL GLANDS WITH SCANTY STROMA. SEE COMMENT. SEPARATE SQUAMOUS EPITHELIUM WITH ATROPHIC FEATURES. Comment: Findings may represent atrophic endometrium in a proper clinical setting. Clinical correlation is recommended. Electronically Signed Lakhwinder Khanna M.D. Gross Description Received in formalin labeled "endometrial curettings, possible fragments of polyp," is a 0.7 x 0.6 x 0.2 cm aggregate of sal brown soft tissue fragment. The formalin is filtered and the specimen is entirely submitted in one cassette. /04/29/2018 [facility]04/29/2018
== END 2018-04-28 17:00 | disposition home or self-care (01) ==
LOC: JASU-SURG 11:37
PROVIDERS: ATTEND Specialist
PROC: 0UJD8ZZ Inspection of Uterus and Cervix, Via Natural or Artificial Opening Endoscopic (ICD-10-PCS; 2018-04-28)
PROC: 0UB97ZX Excision of Uterus, Via Natural or Artificial Opening, Diagnostic (ICD-10-PCS; principal; 2018-04-28 13:00)
PROC: 0UDB7ZX Extraction of Endometrium, Via Natural or Artificial Opening, Diagnostic (ICD-10-PCS; 2018-04-28 13:00)
DX: N95.0 Postmenopausal bleeding (principal); D25.9 Leiomyoma of uterus, unspecified; C50.919 Malignant neoplasm of unspecified site of unspecified female breast; N84.0 Polyp of corpus uteri
CPT/HCPCS: 88305-TC; 94760

== ENCOUNTER 2018-06-30 07:36 | Day surgery (SDC) | payer OTHER ==
--- NOTE | 2018-06-22 10:46 | HP ---
Admitting History and Physical - Primary Care Physician PCP: Mendoza Oquendo - Admission Chief Complaint: Right breast cancer S/P Right breast wide excision Axillary node dissection 07/01/2017. She received neoadjuvant chemotherapy History of Present Illness: 63 year old postmenapausal female S/P right breast wide excision Axillary node dissection 06/2017 She received Herceptin and is on anastrozole. She is here for life port removal. 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 - Smoking History Smoking history: Never smoked Have you smoked in the past 12 months: No - Alcohol/Substance Use Hx Alcohol Use: Yes (OCCASIONALLY) Home Medications - Allergies Allergies/Adverse Reactions: Allergies Allergy/AdvReac Type Severity Reaction Status Date / Time No Known Allergies Allergy Verified 04/27/18 10:49 - Home Medications Home Medications: Ambulatory Orders Albuterol Sulfate Inhaler - [Ventolin HFA Inhaler -] 1 puff IH PRN PRN 02/18/17 Amlodipine Besylate 5 mg PO DAILY 02/18/17 Atenolol/Chlorthalidone [Atenolol-Chlorthalidone 100-25] 1 tab PO DAILY Omeprazole 20 mg PO BID 02/18/17 Salmeterol/Fluticasone [Advair 500Mcg/50Mcg -] 1 inh IN DAILY 02/18/17 Magnesium 400 mg PO DAILY 06/23/17 Potassium Chloride [Klor-Con 10] 10 meq PO DAILY 06/23/17 Anastrozole 1 mg PO DAILY 04/28/18 Calcium + D Soft Chewable Tab 600 mg PO DAILY 04/28/18 Family Disease History - Family Disease History Family History: Denies Physical Examination Constitutional: Yes: Obese Breast(s): Yes: Other (diffusely nodular healed right breast and axillary incision no infection or recurrence left breast negative) Problem List - Problems (1) Breast cancer, right Code(s): C50.911 - MALIGNANT NEOPLASM OF UNSP SITE OF RIGHT FEMALE BREAST Qualifiers: Breast location: overlapping sites of breast Estrogen receptor status: positive Patient sex: female Qualified Code(s): C50.811 - Malignant neoplasm of overlapping sites of right female breast; Z17.0 - Estrogen receptor positive status [ER+]; Z17.0 - Estrogen receptor positive status [ER+] Assessment/Plan removal of Life port
[2018-06-23 15:27] VITALS: BMI 46.5
[~2018-06-30 07:36] MED LIST changes: -DEXAMETHASONE INJECTION 20 MG, DIPHENHYDRAMINE 25 MG, RANITIDINE INJECTION 50 MG in SOD... IVPB ONE; +ONDANSETRON 4 MG/2 ML VIAL IVPUSH PRN; -PACLITAXEL 138 MG in SODIUM CHLORIDE 250 ML IVPB ONE; +oxyCODONE HCL 5 MG TABLET PO PRN
[2018-06-30] MEDS ORDERED: LIDOCAINE HCL/PF 2% SDV 5ML VIAL ONE ×2 (08:08→10:46)
[2018-06-30] MEDS ORDERED: ONDANSETRON 4 MG/2 ML VIAL ONE (08:08)
[2018-06-30] MEDS ORDERED: DEXAMETHASONE SOD PHOSPHATE 4 MG/1 ML VIAL ONE (08:08)
[2018-06-30] MEDS ORDERED: KETOROLAC TROMETHAMINE 30 MG/1 ML VIAL ONE (08:08)
[2018-06-30] MEDS ORDERED: PROPOFOL 20 ML ONE ×2 (08:09→10:45)
[2018-06-30] MEDS ORDERED: MIDAZOLAM HCL 2 MG/2 ML SINGLE DOSE VIAL ONE (10:07)
[2018-06-30] MEDS ORDERED: BUPIVACAINE HCL/PF 2.5 MG/ML - 30 ML VIAL IJ ONE (10:29)
[2018-06-30] MEDS ORDERED: LIDOCAINE HCL 1% PRESERVATIVE FREE - 30ML VIAL ONE (10:29)
[2018-06-30] MEDS ORDERED: ONDANSETRON 4 MG/2 ML VIAL IVPUSH PRN (11:23)
[2018-06-30] MEDS ORDERED: KETOROLAC TROMETHAMINE 30 MG/1 ML VIAL IVPUSH PRN (11:23)
[2018-06-30] MEDS ORDERED: DEXTROSE 5%-0.45% SALINE 1,000 ML IV SCH (11:30)
[2018-06-30 12:28] VITALS: BP 141/89; PULSE 69; TEMP 97.8
--- NOTE | 2018-06-30 21:24 | OP ---
DATE OF OPERATION: 06/30/2018 PREOPERATIVE DIAGNOSIS: Right breast cancer. POSTOPERATIVE DIAGNOSIS: Right breast cancer. PROCEDURE: Excision of left subclavian LifePort. ANESTHESIA: IV sedation with local. ATTENDING SURGEON: Osmani Oquendo MD CUTTER AND EDGE TRIMMER: ANNETTE Castaneda ESTIMATED BLOOD LOSS: Minimal. COMPLICATIONS: None. DESCRIPTION OF PROCEDURE: Patient was made aware of the risks and benefits of the procedure and consented. She was placed in supine position. After IV sedation was administered, the operative site was prepped and draped in usual sterile fashion. Local anesthesia was administered with a mixture of 1:1 of 1% lidocaine and 0.25% bupivacaine. An oblique incision was made over the prior incision. Using sharp dissection, tissues were dissected down to the port head where the capsule was incised. The port was then removed and sharply excised away from the peripheral tissue and submitted as gross only. The lumen was then oversewed with 3-0 Vicryl. The wound was copiously irrigated with normal saline. Hemostasis maintained by electrocautery. The incision was then closed with deep 3-0 Vicryl, followed by running subcuticular 4-0 Monocryl. Dermabond was then applied, and the patient, having tolerated the procedure well, was transferred to the recovery room in excellent condition. OSMANI OQUENDO M.D. [id number]
--- NOTE | 2018-07-01 14:07 | PATH ---
Surgical Pathology Report Patient Name: KARLIE VIDAL [facility]. Rec. #: [id number] /Age/Gender: 1955 (Age: 63) / F Account: [id number] Location: [facility] AMBULATORY Taken: 06/30/2018 Received: 06/30/2018 Reported: 07/01/2018 Physicians: Mendoza Oquendo M.D. Specimen(s) Received LIFE PORT Clinical History Right breast cancer Final Diagnosis LIFE PORT, REMOVAL: CONSISTENT WITH PORT. MACROSCOPIC DIAGNOSIS. Electronically Signed Karo Ferro M.D. Gross Description Received fresh labeled "life port," is a 2.7 x 2.4 x 1.5 cm purple, triangular device, consistent with a port. The port displays a 20 cm in length portion of tubing extending from one aspect. No soft tissue is present. No sections are submitted, gross only. /06/30/2018 [place]06/30/2018
== END 2018-06-30 12:30 | disposition home or self-care (01) ==
LOC: FASU 07:36
PROVIDERS: ATTEND Surgery Surgical Oncology
PROC: 0JPT0WZ Removal of Totally Implantable Vascular Access Device from Trunk Subcutaneous Tissue and Fascia, Open Approach (ICD-10-PCS; principal; 2018-06-30 10:58)
DX: C50.811 Malignant neoplasm of overlapping sites of right female breast (principal); Z17.0 Estrogen receptor positive status [ER+]; I10 Essential (primary) hypertension; E78.5 Hyperlipidemia, unspecified; J45.909 Unspecified asthma, uncomplicated; G47.30 Sleep apnea, unspecified; K21.9 Gastro-esophageal reflux disease without esophagitis
CPT/HCPCS: 88300-TC; 94760

== ENCOUNTER 2018-10-05 09:00 | Emergency (ER) | payer OTHER ==
[2018-10-05 09:08] VITALS: BP 142/77; PULSE 66; TEMP 98.1; BMI 46.5
[2018-10-05] MEDS ORDERED: ACETAMINOPHEN 325 MG TABLET (FP) PO ONE (09:22)
[2018-10-05] MEDS ORDERED: ACETAMINOPHEN 325 MG TABLET (FP) ONE (09:33)
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
== END 2018-10-05 09:37 | disposition home or self-care (01) ==
LOC: JERFT 09:00
DX: M54.2 Cervicalgia (principal); V43.62XA Car passenger injured in collision with other type car in traffic accident, initial encounter; Y93.89 Activity, other specified; Y92.410 Unspecified street and highway as the place of occurrence of the external cause; I10 Essential (primary) hypertension; K21.9 Gastro-esophageal reflux disease without esophagitis; Z85.3 Personal history of malignant neoplasm of breast
CPT/HCPCS: 99281-25

== ENCOUNTER 2021-10-18 13:11 | Emergency (ER) | payer OTHER ==
[2021-10-18 13:16] VITALS: BP 171/66; PULSE 65; RESP 18; TEMP 98.7; BMI 31.1
[2021-10-18] MEDS ORDERED: ONDANSETRON *ODT* 4 MG TABLET SL ONE (16:20)
[2021-10-18] MEDS ORDERED: ONDANSETRON *ODT* 4 MG TABLET ONE (16:29)
== END 2021-10-18 17:53 | disposition home or self-care (01) ==
LOC: JER 13:11
DX: K03.81 Cracked tooth (principal)
CPT/HCPCS: 99285-25; Q0162